=== PATIENT | male | born 1945 | race Two or more races ===

== ENCOUNTER 2024-09-19 13:55 | Outpatient (AMB) | payer MEDICARE, MEDICAID, SELFPAY ==
[2024-09-19 14:50] VITALS: BP 162/77; PULSE 72; RESP 19; TEMP 36.4; O2SAT 96; BMI 32.0
--- NOTE | 2024-09-19 14:50 | ORTHONT_ITS ---
Vital signs 09/19/24 14:50 Height 1.65 m Height Method Stated Weight 87.26 kg Weight Measurement Method Standing Scale BMI 32.0 BP 162/77 H Blood Pressure Source Automatic Cuff Blood Pressure Location Right Upper Arm Position Sitting Respiration 19 Pulse 72 Pulse Source Monitor Temp 97.5 F Temp Source Temporal Artery Scan Pulse Oximetry (%) 96 Oxygen Delivery Method Room Air Med/Allergies Allergies & Medications Allergies No Known Allergies Allergy (Verified 09/19/24 14:53) Medication Reconciliation dapagliflozin propanediol 10 mg tablet (Farxiga) 10 mg PO QAM 09/16/20 [History Confirmed 09/19/24] losartan 50 mg tablet 100 mg PO QDAY 09/16/20 [History Confirmed 09/19/24] metformin 1,000 mg tablet 1,000 mg PO BID 09/16/20 [History Confirmed 09/19/24] omeprazole 40 mg capsule,delayed release 40 mg PO QDAY 09/16/20 [History Confirmed 09/19/24] rivaroxaban 15 mg tablet (Xarelto) 15 mg PO QDAY 09/16/20 [History Confirmed 09/19/24] docusate sodium 250 mg capsule (Col-Rite) 250 mg PO 08/31/22 [History Confirmed 09/19/24] hydralazine 25 mg tablet 25 mg PO QDAY 08/31/22 [History Confirmed 09/19/24] linaclotide 290 mcg capsule (Linzess) 290 mcg PO QDAY 08/31/22 [History Confirme d 09/19/24] Subjective Visit Visit for: follow up visit and x-rays (RESULTS) Immunization / Flu Flu Vaccine in the Last 12 Months: No Flu Vaccine Exclusion Criteria: No Exclusion Criteria History of Present Illness Chief complaint: bilateral knee pain Bilateral knee pain medial is a pleasant 79-year-old male with bilateral knee pain. The left is worse than the right.He has tried anti-inflammatories is not on a very high dose of Xarelto. He is on 15 mg. We also had recent peripheral vascular surgery. The pain is affecting quality life and happiness. He has had multiple injections Pain Pain level (0-10): 6 Pain duration: WITH MOVEMENT Pain location: inside (medial) Pain quality: sharp and aching Pain timing: increases with activity Associated signs & symptoms: numbness and weakness Ambulatory data Ambulatory device: cane Treatments Improvement with previous injections: No Improvement with PT: No Improvement with NSAIDS: no Review of Systems Review of Systems: All systems negative unless otherwise noted in HPI. Exam Exam Patient is in no acute distress and is cooperative with the examination today. Breathing is nonlabored. In no respiratory distress. Bilateral extremities were evaluated and demonstrates sensation intact to light touch. Palpable pedal pulses are present. No significant edema is present. Bilateral hips were examined. The patient has no pain with log roll of the hips. Internal rotation to 30 degrees and external rotation to 30 degrees is painless. Negative FADIR. Bilateral knees demonstrate significant varus alignment. There is significant arthritis. I would guess that the varus is about 15 degrees bilaterally. I reviewed his CTs. X-rays demonstrate significant arthritis with very severe varus deformity. There is a lot of tibial wear in the surgery and may need augments even for a primary total knee replacement. There is significant bone loss and osteophytes present Assessment and Plan Problem List (1) Degenerative arthritis of knee, bilateral: Status: Acute Plan: Patient is a 79-year-old male with bilateral knee pain worse on the left. There is significant varus deformity with [id number] arthritis. He is on Xarelto. He would certainly need a cardiac clearance before surgery. I did feel his pulses in the knee are good. The nature and purpose of the total knee replacement, alternative method(s) of treatment, the material risks involved, and the possibility of complications were fully explained to the patient. The patient does NOT have any of the following contraindications to TKA: - Active infection of the knee joint, OR - Active systemic bacteremia, OR - Active skin infection or open wound at surgical site, OR - Neuropathic arthritis, OR - Severe, rapidly progressive neurological disease, OR - Severe medical condition that makes risks of surgery outweigh the potential benefit The patient was told the most common risks and complications associated with a total knee replacement include, but are not limited to: blood clots in the leg, fatal pulmonary embolism, dislocation of the prosthesis, intraoperative and postoperative fractures of the femur or tibia, infection, failure of the prosthesis or grafting materials, complications from anesthesia, reactions to blood transfusions, postoperative leg length inequality, instability of the knee replacement, nerve damage or injury, vascular injury, delayed wound healing, infection, other injury or even . In addition, there are risks associated with anesthesia given during this operation. Also, the patient was told that after undergoing a total knee replacement there may still be persistent pain or disability. The patient was informed that the success of this operation in part depends upon the mechanical devices which are going to be implanted and that these devices can fail or malfunction, and may need to be repaired or replaced and there are no guarantees as to the longevity of this device or its parts and that it or its parts could fail prematurely. The patient was also notified that during the course of surgery, there may be a need to use bone graft from donors, and that any bone graft used will be carefully screened for communicable diseases, including AIDS, hepatitis, Emeka-Creutzfeldt, or other diseases, but despite the screening procedures, there is a small chance that they could contract one of these diseases. Finally, the patient was asked to follow completely and fully with all advice and recommended treatments, and that recovery and ultimate outcome are affected by their compliance with recommended treatment. We discussed the risks, benefits and treatment alternatives, and the patient is interested in proceeding with surgery. We will try to set this up as expeditiously as possible. We discussed with him that he is at high risk of bleeding she is pleasant for Xarelto. We also discussed that his cardiac clearance and medical clearance will likely limit After surgery performed. We will need to plan for the Xarelto as well Advanced Care Planning Discussion Advance care planning discussed with:: patient Office Procedures GNS Level of Care Nursing/Assessment Patient Status: Established Patient Nursing Assessment/Reassesment: Medication Reconciliation, Update PMH in EMR and Vital Signs Coordination of Care: Complex Care and Chronic Disease 1-5, Education Complex Pt/Fam, Consent,records obtained, informed consent, Results/Orders obtained and Staff clarify orders Special Needs: Language special needs Established Patient Charge Established Patient Point Assignment: 95 Established Patient Point Charge: EP Level 3 (80-115) Past Medical History Past Medical History Have you ever been diagnosed with any of the following: Neurological Problems Seizures: No Cardiology Problems Hypercholesterolemia: Yes Congestive Heart Failure: No Hypertension: Yes Respiratory Problems Chronic Obstructive Pulmonary Disease (COPD): No Smoking: No Smoking Exposure: No Stomache/Intestinal Problems Ulcer: Yes Gastroesophageal Reflux Disease: Yes Genital/Urinary Problems Renal Disease: No Musculoskeletal Problems Arthritis: Yes Head,Eye,Nose,Throat Problems Cataracts: Yes (BILATERAL) Endocrine Problems Diabetes Mellitus Type 1: No Diabetes Mellitus Type 2: Yes Other Problems Falls: No Blood Transfusions: No Blood Transfusion Reaction: No Anesthesia Reactions: No MRSA: No Chicken Pox: Yes Measles: Yes Cancer: No Surgical History Pacemaker: Yes
== END 2024-09-19 15:09 | disposition home or self-care (01) ==
LOC: HODSRG 13:55
PROVIDERS: PCP Physician Assistant; Referring Provider Physician Assistant; Supervising Provider Orthopaedic Surgery Adult Reconstructive Orthopaedic Surgery; Visit Provider Orthopaedic Surgery Adult Reconstructive Orthopaedic Surgery
DX: M17.0 Bilateral primary osteoarthritis of knee (principal); M25.562 Pain in left knee; M25.561 Pain in right knee; M21.162 Varus deformity, not elsewhere classified, left knee; M21.161 Varus deformity, not elsewhere classified, right knee; I10 Essential (primary) hypertension; E78.00 Pure hypercholesterolemia, unspecified
CPT/HCPCS: 99213; G0463

== ENCOUNTER 2025-02-05 14:32 | Outpatient (AMB) | payer MEDICARE, MEDICAID, SELFPAY ==
--- NOTE | 2025-02-05 14:46 | ORTHONT_ITS ---
Vital signs 02/05/25 14:47 Height 1.68 m Height Method Stated Weight 87.685 kg Weight Measurement Method Standing Scale BMI 31.0 BP 150/80 H Blood Pressure Source Automatic Cuff Blood Pressure Location Left Upper Arm Position Sitting Respiration 19 Pulse 71 Pulse Source Monitor Temp 97.3 F Temp Source Temporal Artery Scan Pulse Oximetry (%) 98 Oxygen Delivery Method Room Air Med/Allergies Allergies & Medications Allergies No Known Allergies Allergy (Verified 02/05/25 14:48) Medication Reconciliation dapagliflozin propanediol 10 mg tablet (Farxiga) 10 mg PO QAM 09/16/20 [History Confirmed 02/05/25] losartan 50 mg tablet 100 mg PO QDAY 09/16/20 [History Confirmed 02/05/25] metformin 1,000 mg tablet 1,000 mg PO BID 09/16/20 [History Confirmed 02/05/25] omeprazole 40 mg capsule,delayed release 40 mg PO QDAY 09/16/20 [History Confirmed 02/05/25] rivaroxaban 15 mg tablet (Xarelto) 15 mg PO QDAY 09/16/20 [History Confirmed 02/05/25] Held on 09/25/24. Instructions: Resume on 09/28/24. docusate sodium 250 mg capsule (Col-Rite) 250 mg PO QDAY 08/31/22 [History Confirmed 02/05/25] hydralazine 25 mg tablet 25 mg PO QDAY 08/31/22 [History Confirmed 02/05/25] linaclotide 290 mcg capsule (Linzess) 290 mcg PO QDAY 08/31/22 [History Confirmed 02/05/25] Exam Exam Patient is in no acute distress and is cooperative with the examination today. Breathing is nonlabored. In no respiratory distress. Bilateral extremities were evaluated and demonstrates sensation intact to light touch. Palpable pedal pulses are present. No significant edema is present. Bilateral hips were examined. The patient has no pain with log roll of the hips. Internal rotation to 30 degrees and external rotation to 30 degrees is painless. Negative FADIR. Bilateral knees demonstrate significant varus alignment. There is significant arthritis. I would guess that the varus is about 15 degrees bilaterally. I reviewed his CTs. X-rays demonstrate significant arthritis with very severe varus deformity. There is a lot of tibial wear in the surgery and may need augments even for a primary total knee replacement. There is significant bone loss and osteophytes present Assessment and Plan Problem List (1) Degenerative arthritis of knee, bilateral: Status: Acute Plan: Patient is a 79-year-old male with bilateral knee pain worse on the left. There is significant varus deformity with [id number] arthritis. He is on Xarelto. He has good pulses. The nature and purpose of the total knee replacement, alternative method(s) of treatment, the material risks involved, and the possibility of complications were fully explained to the patient. The patient does NOT have any of the following contraindications to TKA: - Active infection of the knee joint, OR - Active systemic bacteremia, OR - Active skin infection or open wound at surgical site, OR - Neuropathic arthritis, OR - Severe, rapidly progressive neurological disease, OR - Severe medical condition that makes risks of surgery outweigh the potential benefit The patient was told the most common risks and complications associated with a total knee replacement include, but are not limited to: blood clots in the leg, fatal pulmonary embolism, dislocation of the prosthesis, intraoperative and postoperative fractures of the femur or tibia, infection, failure of the prosthesis or grafting materials, complications from anesthesia, reactions to blood transfusions, postoperative leg length inequality, instability of the knee replacement, nerve damage or injury, vascular injury, delayed wound healing, infection, other injury or even . In addition, there are risks associated with anesthesia given during this operation. Also, the patient was told that after undergoing a total knee replacement there may still be persistent pain or disability. The patient was informed that the success of this operation in part depends upon the mechanical devices which are going to be implanted and that these devices can fail or malfunction, and may need to be repaired or replaced and there are no guarantees as to the longevity of this device or its parts and that it or its parts could fail prematurely. The patient was also notified that during the course of surgery, there may be a need to use bone graft from donors, and that any bone graft used will be carefully screened for communicable diseases, including AIDS, hepatitis, Emeka-Creutzfeldt, or other diseases, but despite the screening procedures, there is a small chance that they could contract one of these diseases. Finally, the patient was asked to follow completely and fully with all advice and recommended treatments, and that recovery and ultimate outcome are affected by their compliance with recommended treatment. We discussed the risks, benefits and treatment alternatives, and the patient is interested in proceeding with surgery. We will try to set this up as expeditiously as possible. We discussed with him that he is at high risk of bleeding she is pleasant for Xarelto. We also discussed that his cardiac clearance and medical clearance will likely limit After surgery performed. He will discontinue Xarelto 5 days from surgery. He may need a new CT scan to use the robot Advanced Care Planning Discussion Advance care planning discussed with:: patient Office Procedures GNS Level of Care Nursing/Assessment Patient Status: Established Patient Nursing Assessment/Reassesment: Medication Reconciliation, Update PMH in EMR and Vital Signs Coordination of Care: Complex Care and Chronic Disease 1-5, Education Complex Pt/Fam, Consent,records obtained, informed consent, Results/Orders obtained and Staff clarify orders Special Needs: Language special needs Established Patient Charge Established Patient Point Assignment: 95 Established Patient Point Charge: EP Level 3 (80-115) MA Intake Visit Data Collection New Patient or Established: Established Patient (seen at [facility] within 3 years) Reason for Visit:: PRE OP L TKA 02/23 [employer] Required: Yes PCP or OBGYN visit in last 3 months: Yes Hx Now: No Do You Feel Safe at Home: Yes Authorities Contacted: N/A Questionairres Past Medical History Past Medical History Have you ever been diagnosed with any of the following: Neurological Problems Seizures: No Cardiology Problems Hypercholesterolemia: Yes Congestive Heart Failure: No Hypertension: Yes Respiratory Problems Chronic Obstructive Pulmonary Disease (COPD): No Smoking: No Smoking Exposure: No Stomache/Intestinal Problems Ulcer: Yes Gastroesophageal Reflux Disease: Yes Genital/Urinary Problems Renal Disease: No Musculoskeletal Problems Arthritis: Yes (KNEES) Head,Eye,Nose,Throat Problems Cataracts: Yes (BILATERAL) Endocrine Problems Diabetes Mellitus Type 1: No Diabetes Mellitus Type 2: Yes Other Problems Falls: No (SEVERE PAIN TO KNEES WHEN WALKS) Blood Transfusions: No Blood Transfusion Reaction: No Anesthesia Reactions: Yes (COUGHING SPELL) MRSA: No Chicken Pox: Yes Measles: Yes Cancer: No Surgical History Pacemaker: Yes Subjective Visit Visit for: follow up visit and knee Immunization / Flu Flu Vaccine in the Last 12 Months: No Flu Vaccine Exclusion Criteria: No Exclusion Criteria History of Present Illness Chief complaint: PRE OP left knee pain Slade is a 79-year-old male with left knee surgery was delayed due to cardiac clearance. He reports that he is optimized and now is cleared for surgery. He is post discontinue the Xarelto 5 days before surgery Pain Pain level (0-10): 5 Pain duration: ON AND OFF Pain location: inside (medial), outside (lateral) and anterior Pain quality: dull and aching Pain timing: increases with activity and stairs Associated signs & symptoms: weakness and stiffness Ambulatory data Ambulatory device: cane Treatments Improvement with previous injections: No Improvement with PT: No Improvement with NSAIDS: no Review of Systems Review of Systems: All systems negative unless otherwise noted in HPI.
[2025-02-05 14:47] VITALS: BP 150/80; PULSE 71; RESP 19; TEMP 36.3; O2SAT 98; BMI 31.0
== END 2025-02-05 15:20 | disposition home or self-care (01) ==
PROVIDERS: PCP Family Medicine; Referring Provider Family Medicine; Supervising Provider Orthopaedic Surgery Adult Reconstructive Orthopaedic Surgery; Visit Provider Orthopaedic Surgery Adult Reconstructive Orthopaedic Surgery
DX: M17.0 Bilateral primary osteoarthritis of knee (principal); E78.00 Pure hypercholesterolemia, unspecified; I10 Essential (primary) hypertension; Z95.0 Presence of cardiac pacemaker
CPT/HCPCS: 73700; 99213; G0463

== ENCOUNTER → 2025-02-05 | Outpatient (CLI) | payer MEDICARE, MEDICAID, SELFPAY ==
--- NOTE | 2025-02-05 15:38 | XR_ITS ---
Examination: CT left lower extremity, without contrast. 2-D sagittal reconstructions. 2-D coronal reconstructions. 3-D reconstructions. Date and time of exam:February 05, 2025 1714 hrs. Indications: Left knee pain 5 years, diagnosis primary osteoarthritis left knee CTDI: vol (mGy):9.75 DLP: (mGycm):751 Technique: Multiple 1.25 mm axial sections of the left lower extremity without intravenous contrast have been obtained. 2-D sagittal and coronal reconstructions have been obtained. 3-D reconstructions have been obtained. Low dose protocols were performed. One or more of the following dose reduction techniques were used; automated exposure control, adjustment of the mA and/or KV according to patient size, use of iterative reconstruction technique. Findings: Prominent osteopenia Moderate narrowing left hip joint no left hip fracture Left knee severe tricompartment osteoarthritis No fracture. No patellar dislocation Impression: Left knee severe tricompartment osteoarthritis
== END | disposition home or self-care (01) ==
PROVIDERS: PCP Orthopaedic Surgery Adult Reconstructive Orthopaedic Surgery; Referring Provider Orthopaedic Surgery Adult Reconstructive Orthopaedic Surgery; Visit Provider Orthopaedic Surgery Adult Reconstructive Orthopaedic Surgery
DX: M17.12 Unilateral primary osteoarthritis, left knee (principal)
CPT/HCPCS: 73700

== ENCOUNTER 2025-02-23 05:35 | Day surgery (SDC) | payer MEDICARE, MEDICAID, SELFPAY ==
--- NOTE | 2025-02-17 07:25 | EKG_ITS ---
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
[2025-02-17 09:26] VITALS: BMI 32.8
[2025-02-17 11:12] LABS: Basophils # (Auto) 0.1 Thou/mm3 (0.0-0.2); Basophils % (Auto) 1 % (0-2.5); Eosinophils # (Auto) 0.1 Thou/mm3 (0.0-0.5); Eosinophils % (Auto) 1 % (0-10); Hematocrit 40.7 % (41.0-53.0); Hemoglobin 13.8 g/dL (13.5-16.0); Immature Granulocytes % (Auto) 1 % (0-0); Immature Granulocytes Auto 0.03 Thou/mm3 (0.00-0.00); Lymphocytes # (Auto) 1.2 Thou/mm3 (1.0-4.8); Lymphocytes % (Auto) 25 % (10-50); Mean Corpuscular HGB Conc 33.9 g/dl (31.0-37.0); Mean Corpuscular Hemoglobin 29.9 pg (25.0-35.0); Mean Corpuscular Volume 88 fL (80-100); Monocytes # (Auto) 0.5 Thou/mm3 (0.0-0.8); Monocytes % (Auto) 9 % (0-12); Neutrophils # (Auto) 3.2 Thou/mm3 (1.8-7.7); Neutrophils % (Auto) 64 % (37-80); Nucleated Red Blood Cell % 0 /100 WBC (0); Platelet Count 213 Thou/mm3 (140-440); RDW Standard Deviation 47.1 fL (35.1-43.9); Red Blood Count 4.62 Miln/mm3 (4.50-5.90)
[2025-02-17 11:18] LABS: INR 1.2 (0.9-1.3); Partial Thromboplastin Time 32.4 Seconds (22.0-36.0); Prothrombin Time 12.8 Seconds (9.0-12.2)
[2025-02-17 11:20] LABS: Alanine Aminotransferase 20 U/L (10-49); Albumin, Serum 4.6 gm/dL (3.4-4.8); Albumin/Globulin Ratio 1.6 (1.2-2.2); Alkaline Phosphatase 59 U/L (46-116); Anion Gap 12 (7-16); Aspartate Amino Transferase 22 U/L (0-34); BUN/Creatinine Ratio 20 Ratio (12-20); Bilirubin,Total 0.7 mg/dL (0.3-1.2); Blood Urea Nitrogen 20 mg/dL (9-23); Calcium 10.1 mg/dL (8.3-10.6); Calcium (Corrected) 10.1 mg/dL (8.5-10.1); Chloride 104 mMol/L (98-107); Estimated Creatinine Clearance 59.5 mL/min (>60); Globulin 2.9 gm/dL (2.3-3.5); Glucose 143 mg/dL (74-106); Osmolality,Calculated 285 (275-295); Potassium 4.1 mMol/L (3.4-5.1); Sodium 141 mMol/L (136-145); Total Protein 7.5 gm/dL (5.7-8.2); eGFR > 60 See Note
[2025-02-23] VITALS (15 sets, daily range): BP systolic 116–146; BP diastolic 74–98; PULSE 71–83; RESP 12–18; TEMP 36.3–36.5; O2SAT 95–98; BMI 32.4
[2025-02-23] MEDS: MELOXICAM 7.5 MG TABLET PO (06:35)
[2025-02-23] MEDS: ACETAMINOPHEN 325 MG TABLET 650 MG PO (06:35)
[2025-02-23] MEDS: PREGABALIN 75 MG CAPSULE PO (06:36)
--- NOTE | 2025-02-23 07:23 | SUR.PREOP ---
Patient expressed gratitude for prayer before their procedure.
--- NOTE | 2025-02-23 09:49 | ESOP_ITS ---
Date of Procedure 02/23/25 Pre Op Diagnosis left knee osteoarthritis Post Op Diagnosis left knee osteoarthritis Procedure left total knee replacement Findings full thickness cartilage loss and osteophytes Procedure Description Indication: The patient is a 79 year old who has a long history of left knee pain. X-rays show degenerative arthritis involving the knee. Over the past several years the patient has had increasing pain, progressive limitation in function. He has failed conservative measures including activity modification, physical therapy, injections, anti-inflammatories, and assistive devices. After a lengthy discussion of the risks and benefits, the patient presents now for total knee replacement. The nature and purpose of the total knee replacement, alternative method(s) of treatment, the material risks involved, and the possibility of complications were fully explained to the patient. The patient was told the most common risks and complications associated with a total knee replacement include, but are not limited to blood clots in the leg, fatal pulmonary embolism, dislocation of the prosthesis, intraoperative and postoperative fractures of the femur or tibia, infection, failure of the prosthesis or grafting materials, complications from anesthesia, reactions to blood transfusions, postoperative leg length inequality, instability of the knee replacement, nerve damage or injury, vascular injury, delayed wound healing, infections, other injury or even . In addition, there are risks associated with anesthesia given during this operation, temporary or permanent numbness on the skin lateral to the incision can be a complication unique to total knee surgery, and kneeling can be painful after knee replacement surgery. Also, the patient was told that after undergoing a total knee replacement there may still be pain or disability. We discussed with the patient that we will be using a robot-assisted technology. We discussed that there is a possibility of converting to manual instrumentation. The patient was informed that the success of this operation in part depends upon the mechanical devices which are going to be implanted and that these devices can fail or malfunction, and may need to be repaired or replaced and there are no guarantees as to the longevity of this device or its part and that it or its parts could fail prematurely. Finally, the patient was asked to follow completely and fully with all advice and recommended treatments, and that recovery and ultimate outcome are affected by their compliance with recommended treatment. Surgical technique: Patient was marked and consented in the pre-operative area. The patient was brought to the operating room and placed on the operating table in a supine position. Prior to positioning, a timeout procedure was performed between the surgeon, the anesthesiologist, and the nursing staff where the patient and the operative side were identified and confirmed. After adequate general anesthetic was obtained, the left lower extremity was prepped and draped in the usual sterile fashion. A weight based dose of Cefazolin were administered within 1 hour prior to incision. The robot was preregistered and calirated before the incision. The extremity was exsanguinated with an esmarch badge and tourniquet inflated to 250mmHg. A midline incision was made. A median parapatellar arthrotomy was made. The patella was subluxed laterally. A medial release was performed to expose the medial tibia. His femoral and tibial pins were placed through an intra incisional manner for both cases. Every effort was made to ensure that the distalmost aspect of the pin was hung in the second cortex. The arrays were then tightened several times to ensure that it was fixed for the remainder of the case. Both femoral and tibial checkpoints were then placed. We then went through the registration process of the bone. We then assessed the knee deformity and attempted to correct it. We also used the robot to aid in judging laxity in both extension and flexion. Final based on laxity and alignment we changed the preoperative assessment to obtain proper proper implant positioning and to correct deformity. Attention was then placed to the tibia. We made a tibial cut using the robot ensuring that both the MCL and the patella tendon were protected with retractors. We then went to the femur and made the posterior cut followed by the anterior cut and the anterior chamfer. The bone was then removed and we made a distal femur cut and a posterior chamfer cut. We verified all cuts. We cut for a PS given the 22 degreee preoperative deformity. A trial reduction was performed with a size 5 femoral component and a size 4 keeled tibial component. The patella tracked centrally, and no lateral retinacular release was necessary. The trial implants were removed. The arrays, pins, and checkpoints were all removed. We performed a verification that all pins were removed. The cut bone surfaces were lavaged. A size 5 left femoral component, a size 4 keeled tibial component were impacted into position using 2 bags of palacos. A trial insert was placed. The knee was left in extension until the cement hardened. The knee was felt to be well balanced in the sagittal and coronal plane. The final 4x10mm posterior-substituting articular insert was impacted into the tibial tray. The knee was brought out to full extension, flexed up to 120 degrees. It was stable to varus and valgus stress and appropriately balanced in flexion and extension. The wounds were copiously irrigated following deflation of tourniquet. The medial retinaculum was reapproximated with #1 vicryl and quill. The subcutaneous tissues were closed with 0 and 2-0 interrupted Vicryl. The skin was closed with 3-0 Monofilament V loc suture. A sterile dressing was applied. The patient was transferred to a bed and brought to recovery in stable condition. The patient tolerated the procedure well. There were no intraoperative complications. Sponge and needle counts were correct times 2. As the attending surgeon, I attest I was present and performed the entire operation. Grafts/Implants Size 5 PS Femur Size 4 Tibia 10mm poly CS 2 bags of palacos Anesthesia spinal Drains none Implants fred Pathology / specimen None Pathology comment: none Estimated Blood Loss 150 Condition Stable Disposition same day Surgeon Gaurav Rutherford MD Surgical Staff Operation Date: 02/23/25 07:30 Case Staff PROVIDER NETWORK ANALYST: Mario Bautista RNchoir member: Roxi Hines
--- NOTE | 2025-02-23 10:01 | XR_ITS ---
Examination: Left knee 2 views Technique one AP lateral left knee 2 views Exam date and time: February 23, 2025 1111 hours INDICATIONS: Postop knee replacement FINDINGS: Left knee arthroplasty. Satisfactory alignment Severe osteopenia. No fracture IMPRESSION: Total left knee arthroplasty with satisfactory alignment
--- NOTE | 2025-02-23 10:36 | SUR.PHASEI ---
pt received from OR in recovery bay 1. pt obtunded, breathing unlabored on oxymask 8l, oral airway in place. v/s stable. pt dressing to left lower extremity cdi, knee immobilizer in place. Report recieved from Stacey OGDEN and Mario REYNA.
--- NOTE | 2025-02-23 12:09 | SUR.PHASEII ---
pt able to tolerate oral fluids without difficulty swallowing or nausea/vomiting.
--- NOTE | 2025-02-23 12:45 | SUR.PHASEII ---
pt lying in bed with eyes closed, breathing unlabored, dressing to left lower extremity clean, dry, and intact, report from Azam OGDEN
--- NOTE | 2025-02-23 13:21 | SUR.PHASEII ---
Report to Azam OGDEN
--- NOTE | 2025-02-23 14:45 | SUR.PHASEII ---
pt awake and alert, breathing unlabored on room air. v/s stable. pt dressing to left lower extremity cdi. knee immobilizer in place. pt cleared by physical therapist Al. pt able to ambulate using walker. d/c instructions given with and son in room using supervisor speech Prakash Bryant9, all questions answered. pt d/c via wheelchair with all belongings.
== END 2025-02-23 14:45 | disposition home or self-care (01) ==
PROVIDERS: Anesthesiology; PCP Physician Assistant; Referring Provider Orthopaedic Surgery Adult Reconstructive Orthopaedic Surgery; Visit Provider Orthopaedic Surgery Adult Reconstructive Orthopaedic Surgery
PROC: (CPT 27447; principal; 2025-02-23 07:30)
DX: M17.12 Unilateral primary osteoarthritis, left knee (principal); M25.762 Osteophyte, left knee; I10 Essential (primary) hypertension; E78.00 Pure hypercholesterolemia, unspecified; E11.9 Type 2 diabetes mellitus without complications; Z79.84 Long term (current) use of oral hypoglycemic drugs; Z79.899 Other long term (current) drug therapy; Z79.01 Long term (current) use of anticoagulants
CPT/HCPCS: 27447; 20985; 36415; 73560; 80053; 85025; 85610; 85730; 93005; 97162; A4217; C1713; C1776; J0690; J2250; J2405; J2704; J3010; J3490; J7030; J7999; L1832; A4648; A4649; A9270

== ENCOUNTER 2025-02-28 12:12 | Emergency (ER) | payer MEDICARE, MEDICAID, SELFPAY ==
[2025-02-28 13:36] VITALS: BP 144/76; PULSE 87; RESP 18; TEMP 37.2; O2SAT 97; BMI 31.2
--- NOTE | 2025-02-28 13:58 | XR_ITS ---
Examination: Duplex scan of the lower extremity, unilateral left complete Date and time of exam: February 28, 2025 1623 hours INDICATIONS: Status post left hip replacement February 24, 2025 with leg pain on the left swelling today Technique: Duplex scan of the extremity veins using B-mode/grayscale imaging and Doppler spectral analysis and color flow Attention is directed to internal echogenicity, compression and augmentation involving these veins, color flow assessment, spectral analysis Findings: Major deep venous structures in the extremity demonstrate normal course and caliber. There is no evidence of deep vein thrombosis. Normal color flow and spectral analysis Impression: Negative for DVT..
--- NOTE | 2025-02-28 14:02 | PD.EDRME ---
Rapid Medical Screening Exam RME Arrival date/time: 02/28/25 12:12 Chief Complaint: Extremity Problem,Nontraumatic Time Seen by Provider: 02/28/25 13:38 Vital signs: Vital Signs Temperature 99 F 02/28/25 13:36 Pulse Rate 87 02/28/25 13:36 Respiratory Rate 18 02/28/25 13:36 Blood Pressure 144/76 H 02/28/25 13:36 Pulse Oximetry (%) 97 02/28/25 13:36 Oxygen Delivery Method Room Air 02/28/25 13:36 E Narrative: 79-year-old male 5 days postop here for sudden pain. On oxycodone and states this morning after his rehab at home the swelling behind his leg and in the inner groin with worse and painful he could no longer tolerate it and OxyContin was not working. Family is here worried about a blood clot. No difficulty breathing
[2025-02-28] MEDS: KETOROLAC INJ 60 MG/2 ML VIAL 30 MG IM (14:11)
--- NOTE | 2025-02-28 18:02 | PC.NURSE ---
Patient from [facility] and taken to room 4 with c/o left knee pain and swelling, s/p left knee surgery on sunday, patient denies pain at this time stating he was given pain medication in er earlier, chart up to be seen by er provider. Call light within reach.
[2025-02-28 18:08] VITALS: BP 130/66; PULSE 66; RESP 18; TEMP 36.8; O2SAT 97
--- NOTE | 2025-02-28 18:33 | XR_ITS ---
Examination: CT left lower extremity, without contrast. 2-D sagittal reconstructions. 2-D coronal reconstructions. 3-D reconstructions. Date and time of exam: March 01, 2025 0004 hours Comparison February 05, 2025 MEDICATIONS: Left leg surgery 5 days ago, pain and swelling CTDI: vol (mGy):6.87 DLP: (mGycm):476 Technique: Multiple 1.25 mm axial sections of the 60 cc Isovue 370 have been obtained. 2-D sagittal and coronal reconstructions have been obtained. 3-D reconstructions have been obtained. Low dose protocols were performed. One or more of the following dose reduction techniques were used; automated exposure control, adjustment of the mA and/or KV according to patient size, use of iterative reconstruction technique. Findings: Total left knee arthroplasty. Adequate alignment No fracture or No cortical bone destruction Cellulitis pattern with subcutaneous edema Large complex knee effusion No rafaela cortical bone destruction IMPRESSION: Total left knee arthroplasty with satisfactory alignment No fracture No rafaela cortical bone destruction Large complex knee effusion
--- NOTE | 2025-02-28 18:34 | XR_ITS ---
Examination: AP chest single view TECHNIQUE: AP portable semiupright chest single view Exam date and time: February 28, 2025 1919 hours Comparison January 31, 2019 INDICATIONS: Shortness of breath chest pain beginning 2 days ago FINDINGS: Mild prominence left ventricle Cardiac leads satisfactory position No pneumonia or pulmonary edema IMPRESSION: No pneumonia or pulmonary edema
[2025-02-28] MEDS: SODIUM CHLORIDE 0.9% 1000 ML 1,000 ML 999 ML IV (18:49)
--- NOTE | 2025-02-28 18:51 | PC.NURSE ---
Patient refused morphine. Patient states he has no pain at this time. Informed patient to let me know if pain returns, will give medication per MD order.
[2025-02-28 18:52] LABS: Lactate (Lactic Acid) 3.2 mMol/L (0.4-2.0)
[2025-02-28 18:53] LABS: Basophils % (Auto) 1 % (0-2.5); Eosinophils # (Auto) 0.1 Thou/mm3 (0.0-0.5); Eosinophils % (Auto) 2 % (0-10); Hematocrit 30.7 % (41.0-53.0); Hemoglobin 10.6 g/dL (13.5-16.0); Immature Granulocytes % (Auto) 1 % (0-0); Immature Granulocytes Auto 0.02 Thou/mm3 (0.00-0.00); Lymphocytes # (Auto) 0.6 Thou/mm3 (1.0-4.8); Lymphocytes % (Auto) 16 % (10-50); Mean Corpuscular HGB Conc 34.5 g/dl (31.0-37.0); Mean Corpuscular Hemoglobin 30.2 pg (25.0-35.0); Mean Corpuscular Volume 88 fL (80-100); Monocytes # (Auto) 0.6 Thou/mm3 (0.0-0.8); Monocytes % (Auto) 15 % (0-12); Neutrophils # (Auto) 2.5 Thou/mm3 (1.8-7.7); Neutrophils % (Auto) 65 % (37-80); Nucleated Red Blood Cell % 0 /100 WBC (0); Platelet Count 240 Thou/mm3 (140-440); RDW Standard Deviation 45.9 fL (35.1-43.9); Red Blood Count 3.51 Miln/mm3 (4.50-5.90); White Blood Count 3.8 Thou/mm3 (3.8-10.6)
[2025-02-28 19:00] LABS: Sed Rate (ESR) 67 mm/hr (0-20)
[2025-02-28 19:19] LABS: Alanine Aminotransferase 17 U/L (10-49); Albumin/Globulin Ratio 1.4 (1.2-2.2); Alkaline Phosphatase 64 U/L (46-116); Anion Gap 12 (7-16); Aspartate Amino Transferase 20 U/L (0-34); BUN/Creatinine Ratio 16 Ratio (12-20); Bilirubin,Total 0.9 mg/dL (0.3-1.2); Blood Urea Nitrogen 18 mg/dL (9-23); Calcium 8.8 mg/dL (8.3-10.6); Calcium (Corrected) 8.8 mg/dL (8.5-10.1); Carbon Dioxide 22.1 mMol/L (20.0-31.0); Chloride 98 mMol/L (98-107); Creatinine (Component) 1.1 mg/dL (0.6-1.3); Estimated Creatinine Clearance 54.7 mL/min (>60); Globulin 2.8 gm/dL (2.3-3.5); Glucose 217 mg/dL (74-106); Magnesium 2.1 mg/dL (1.6-2.6); Osmolality,Calculated 273 (275-295); Sodium 132 mMol/L (136-145); Total Protein 6.8 gm/dL (5.7-8.2); eGFR > 60 See Note
[2025-02-28 19:21] LABS: B-Type Natriuretic Peptide 72 pg/mL (0-100)
--- NOTE | 2025-02-28 19:22 | PD.EDEXREM ---
ED Extremity Problem RME/HPI General Chief complaint: Extremity Problem,Nontraumatic Stated complaint: LEFT LEG / KNEE SWELLING POST SURGERY Time Seen by Provider: 02/28/25 13:38 Arrival date/time: 02/28/25 12:12 RME / HPI RME / HPI Narrative: 79-year-old male 5 days postop here for sudden pain. On oxycodone and states this morning after his rehab at home the swelling behind his leg and in the inner groin with worse and painful he could no longer tolerate it and OxyContin was not working. Family is here worried about a blood clot. No difficulty breathing This section includes all my notes and documentations, including HPI, PE, and ED course. Eric Muñoz MD HPI: 75-year-old male here to be evaluated with a couple day history of severely worsening pain and swelling and redness of the left knee. Dr. Rutherford performed left knee replacement about a week ago, on 02/23/2025. No fever or chills. No body aches or malaise. No other complaints. ROS: All negative except as documented in HPI. Physical Exam: General: Alert and oriented. Eyes: Conjunctivae and lids clear. ENT: No nasal congestion. Neck: Supple. Lungs: No respiratory distress. Skin: Warm and dry. Neuro: Alert and oriented X 3. Left knee: Severely erythematous with edema and calor and tenderness. I reviewed all diagnostic test results. My interpretation of the chest x-ray is no acute findings. My review of the left leg US report is no DVT. My review of the left leg CT report is: 1. No acute fractures or dislocations. 2. Subcutaneous fat edema, consider cellulitis in the differential diagnosis. 3. Complex knee joint effusion, limited evaluation due to beam hardening artifacts. Consider further evaluation to assess for septic arthritis. 4. No CT evidence of osteomyelitis. Blood tests and urine tests remarkable for ESR 67, lactic acid 3.2, CRP 13.3,. At this point, diagnoses include left knee surgical infection. Treatment here included IV fluid and morphine and cefepime and vancomycin. Waiting for Dr. Rutherford to call back. At 6 AM on 03/01/25, the care of the patient was transferred to Dr. Gayle. Eric Muñoz MD Related Data Home Medications ?Medication ?Instructions ?Recorded ?Confirmed omeprazole 40 mg capsule,delayed 40 mg PO QDAY 09/16/20 02/28/25 release rivaroxaban 15 mg tablet (Xarelto) 15 mg PO QDAY 09/16/20 02/28/25 Held on 02/23/25. Instructions: Resume on 03/09/25. hold for 14 days then resume after 10mg dose is stopped linaclotide 290 mcg capsule 290 mcg PO QDAY 08/31/22 02/28/25 (Linzess) dapagliflozin propaned 5 1 tab PO .qd 02/17/25 02/28/25 mg-metformin ER 1,000 mg tablet, ext rel 24hr (Xigduo XR) insulin degludec 100 unit/mL (3 40 unit subcut HS 02/17/25 02/28/25 mL) subcutaneous pen losartan 100 mg tablet 100 mg PO DAILY 02/17/25 02/28/25 Previous Rx's ?Medication ?Instructions ?Recorded acetaminophen 500 mg tablet 1,000 mg (2 x 500 mg) PO Q6H PRN 02/23/25 (Acetaminophen Extra Strength) pain #90 tabs doxycycline hyclate 100 mg tablet 100 mg PO BID #14 tabs 02/23/25 gabapentin 300 mg capsule 300 mg PO .qhs #30 caps 02/23/25 oxycodone 5 mg tablet 5 mg PO Q6H PRN pain #28 tabs 02/23/25 rivaroxaban 10 mg tablet (Xarelto) 10 mg PO QDAY #14 tabs 02/23/25 sennosides 8.6 mg-docusate sodium 1 tab-cap PO QDAY #30 tabs 02/23/25 50 mg tablet (Senna-S) Allergies Allergy/AdvReac Type Severity Reaction Status Date / Time No Known Allergies Allergy Verified 02/28/25 12:15 Course Quality Measures none Orders Category Date Time Status CT Screening NOW Care 02/28/25 18:33 Active Saline [Insert IV] NOW Care 02/28/25 18:32 Completed Straight [In and Out Catheter] X1 Care 02/28/25 18:[address] lower leg LT w con Stat Exams 02/28/25 18:33 Taken US venous doppler LE LT Stat Exams 02/28/25 13:58 Completed XR chest 1V portable Stat Exams 02/28/25 18:34 Completed BNP [B-Type Natriuretic Peptide] Stat Lab 02/28/25 18:45 Completed Blood Culture (Lab) Stat Lab 02/28/25 19:03 Received CBC Stat Lab 02/28/25 18:45 Completed CMP [Comprehensive Metabolic Panel] Stat Lab 02/28/25 18:45 Completed CRP [C-Reactive Protein] Stat Lab 02/28/25 18:45 Completed ESR [Sed Rate (ESR)] Stat Lab 02/28/25 18:45 Completed Lactate (Lactic Acid) Stat Lab 02/28/25 18:45 Completed Lactic Acid, 3 HR Stat Lab 02/28/25 21:55 Completed Magnesium Stat Lab 02/28/25 18:45 Completed PT [Prothrombin Time with INR] Stat Lab 02/28/25 18:45 Completed PTT [Partial Thromboplastin Time] Stat Lab 02/28/25 18:45 Completed Procalcitonin Stat Lab 02/28/25 18:45 Completed TSH [Thyroid Stimulating Hormone] Stat Lab 02/28/25 18:45 Completed UA, C/S IF [Urinalysis, C/S if Indicated] Stat Lab 02/28/25 19:26 Completed Cefepime Inj [Maxipime Inj] 2 gm Med 03/01/25 01:36 Discontinued SODIUM CHLORIDE 0.9% (Popper) [Ns 0.9% (P)] 50 ml IV X1 Doxycycline [Vibramycin] Med 03/01/25 01:26 Discontinued 100 mg PO X1 ONE Ketorolac Inj [Toradol Inj] Med 02/28/25 13:58 Discontinued 30 mg IM X1 ONE Morphine Inj Med 03/01/25 01:16 Discontinued 4 mg IVP X1 ONE Morphine Inj Med 02/28/25 18:32 Discontinued 5 mg IVP X1 ONE Ondansetron Inj [Zofran Inj] Med 03/01/25 01:16 Discontinued 4 mg IV X1 ONE Sodium Chloride 0.9% 1000 ml [Ns] 1,000 ml Med 02/28/25 18:32 Discontinued IV 999 mls/hr Sodium Chloride 0.9% 1000 ml [Ns] 1,000 ml Med 03/01/25 01:22 Discontinued IV 999 mls/hr Sodium Chloride 0.9% 1000 ml [Ns] 1,000 ml Med 03/01/25 01:36 Discontinued IV 999 mls/hr Vancomycin Inj 2,000 mg Med 03/01/25 01:36 Active Sodium Chloride 0.9% 500 ml [Ns] 500 ml IV X1 Vital Signs Vital signs: Vital Signs Temperature 99 F 02/28/25 13:36 Pulse Rate 87 02/28/25 13:36 Respiratory Rate 18 02/28/25 13:36 Blood Pressure 144/76 H 02/28/25 13:36 Pulse Oximetry (%) 97 02/28/25 13:36 Oxygen Delivery Method Room Air 02/28/25 13:36 Extremity Problem Patient data External records reviewed:: [facility] previous records Clinical information provided by:: patient and family Social determinants that could affect healthcare access:: none Patient has the following chronic illnesses:: Hypertension and arthritis and recent left knee replacement How is presenting disease/condition affected by chronic disease/condition?: exacerbated by Evaluation data The following diagnostics were reviewed and interpreted by me:: lab results and radiology exam(s) Lab and/or radiology exams considered but not ordered:: None Interpretation Summary: Left knee surgical infection Medications / Prescriptions Medications or Prescriptions considered but not ordered:: None Medication administrations:: Medication Administration History Vancomycin HCl 2,000 mg/ (Sodium Chloride) 500 mls @ 150 mls/hr IV X1 ONE Stop: 03/01/25 04:55 Last Admin: 03/01/25 03:04 Dose: 150 mls/hr Documented By: CVL Discontinued Medications Doxycycline Hyclate (Doxycycline 100 Mg Tablet) 100 mg PO X1 ONE Stop: 03/01/25 01:27 Last Admin: 03/01/25 01:44 Dose: 100 mg Documented By: AM Sodium Chloride (Ns) 1,000 mls @ 999 mls/hr IV .Q1H1M ONE Stop: 02/28/25 19:32 Last Infusion: 02/28/25 22:15 Dose: Infused Documented By: Admin: 02/28/25 18:49 Dose: 999 mls/hr Documented By: LÓPEZ Sodium Chloride (Ns) 1,000 mls @ 999 mls/hr IV .Q1H1M ONE Stop: 03/01/25 02:22 Last Infusion: 03/01/25 02:23 Dose: Infused Documented By: Admin: 03/01/25 01:45 Dose: 999 mls/hr Documented By: AM Cefepime HCl 2 gm/ Sodium (Chloride) 50 mls @ 100 mls/hr IV X1 ONE Stop: 03/01/25 02:05 Last Infusion: 03/01/25 03:02 Dose: Infused Documented By: Admin: 03/01/25 02:30 Dose: 100 mls/hr Documented By: CVL Sodium Chloride (Ns) 1,000 mls @ 999 mls/hr IV .Q1H1M ONE Stop: 03/01/25 02:36 Last Infusion: 03/01/25 03:34 Dose: Infused Documented By: Admin: 03/01/25 02:33 Dose: 999 mls/hr Documented By: CVL Ketorolac Tromethamine (Ketorolac Inj 60 Mg/2 Ml Vial) 30 mg IM X1 ONE Stop: 02/28/25 13:59 Last Admin: 02/28/25 14:11 Dose: 30 mg Documented By: CHAVEZ Morphine Sulfate (Morphine Sulf Inj 10 Mg/Ml Vial) 5 mg IVP X1 ONE Stop: 02/28/25 18:33 Last Admin: 02/28/25 20:56 Dose: Not Given Documented By: MC Non-Admin Reason: Patient Refused Morphine Sulfate (Morphine Sulf Inj 10 Mg/Ml Vial) 4 mg IVP X1 ONE Stop: 03/01/25 01:17 Last Admin: 03/01/25 01:43 Dose: 4 mg Documented By: AM Ondansetron HCl (Ondansetron Inj 2 Mg/Ml Inj 2 Ml) 4 mg IV X1 ONE; Protocol Stop: 03/01/25 01:17 Last Admin: 03/01/25 01:44 Dose: 4 mg Documented By: JU[facility]ARLOS [facility], patient received [facility] fluid and Zofran and morphine and cefepime and vancomycin. Consultations Consultation(s) initiated? (list below): No Diagnosis Extremity Problem Differential Diagnosis: cellulitis, superficial thrombophlebitis, deep vein thrombosis of lower extremity and other (Surgical infection, abscess, sepsis, osteomyelitis) Most likely diagnosis given after review of the tests above:: Left knee surgical infection Admission Indicated Admission indicated?: not indicated Explain why admission is indicated or not indicated:: Waiting for Dr. Rutherford to call back. Admission Request Was there a request for admission?: No Disposition Plan Disposition Plan: other (specify) (Care of the patient was transferred to Dr. Gayle. ) Discharge Plan Prescriptions/Referrals Prescriptions/Med Rec: No Action omeprazole 40 mg Capsule,Delayed Release(Dr/Ec) 40 mg PO QDAY Xarelto 15 mg Tablet 15 mg PO QDAY Linzess 290 mcg Capsule 290 mcg PO QDAY losartan 100 mg tablet 100 mg PO DAILY dapaglifloz propaned-metformin [Xigduo XR] 5-1,000 mg tablet, IR - ER, biphasic 24hr 1 tab PO .qd insulin degludec 100 unit/mL (3 mL) insulin pen 40 unit SUBCUT HS acetaminophen [Acetaminophen Extra Strength] 500 mg tablet 1,000 mg PO Q6H MDD 1000mg PRN (Reason: pain) Qty: 90 0RF gabapentin 300 mg capsule 300 mg PO .qhs Qty: 30 0RF doxycycline hyclate 100 mg tablet 100 mg PO BID Qty: 14 0RF oxycodone 5 mg tablet 5 mg PO Q6H MDD 20 PRN (Reason: pain) Qty: 28 0RF Rx Instructions: z96.65 sennosides-docusate sodium [Senna-S] 8.6-50 mg tablet 1 tab-cap PO QDAY Qty: 30 0RF Xarelto 10 mg tablet 10 mg PO QDAY Qty: 14 0RF Rx Instructions: Take for 14 days then resume original home dose of 15mg q day Referrals: No Primary/Family,Physician [Primary Care Provider] - In 1 week Problem List Clinical Impression: Left knee pain Patient/Caregiver Discharge Instructions Print Language: Yakut
[2025-02-28 19:31] LABS: Collection Type, Urine Clean Catch; RBC,Urine 0 /hpf (0-3); WBC,Urine 0 /hpf (0-5)
[2025-02-28 19:52] LABS: C-Reactive Protein 13.3 mg/dL (0.0-0.9)
[2025-02-28 19:59] LABS: Bilirubin,Urine Negative (Negative); Blood,Urine Negative (Negative); Clarity,Urine Clear (Clear/Hazy); Color,Urine Lt-Yellow (Lt Yel-Yel); Culture Indicated,Urine Not Indicated; Glucose, Urine 4+ (Negative); Ketones,Urine Negative (Negative); Leukocyte Esterase,Urine Negative (Negative); Nitrite,Urine Negative (Negative); Protein,Urine Negative (Neg - Trace); Specific Gravity,Urine 1.028 (1.001-1.035); Squamous Epithelial Cell,Urine < 1 /hpf (0-5); Urobilinogen,Urine Negative mg/dL (0.0-1.0)
[2025-02-28 20:36] VITALS: BP 138/80; PULSE 58; RESP 17; TEMP 36.8; O2SAT 96
[2025-02-28 21:22] LABS: INR 1.1 (0.9-1.3); Partial Thromboplastin Time 31.3 Seconds (22.0-36.0); Prothrombin Time 11.4 Seconds (9.0-12.2)
[2025-02-28 21:47] LABS: Reflex Lactate? Y
[2025-02-28 22:01] LABS: Lactic Acid, 3 HR 2.4 mMol/L (0.4-2.0)
[2025-02-28 23:03] VITALS: BP 141/69; PULSE 70; RESP 18; TEMP 37.1; O2SAT 99
--- NOTE | 2025-03-01 01:05 | PRELIM_ITS ---
CT scan of the left lower extremity (knee, tibia and fibula, ankle, and foot) with intravenous contrast (axial sections with sagittal and coronal reformats) March 01, 2025 at 0004 hours Clinical History: Edema. Erythema calor, tenderness. Comparison: No prior study is available for comparison. Findings: Suboptimal timing of the contrast bolus for enhancement of the lower extremity vasculature. Image quality is limited by beam hardening artifact. Status post knee joint replacement, no evidence of hardware failure or loosening. Complex knee joint effusion, limited evaluation due to beam hardening artifact. Subcutaneous fat edema. No acute fractures or dislocation. No collections. Vascular calcifications. No CT evidence of osteomyelitis. Impression: 1. No acute fractures or dislocations. 2. Subcutaneous fat edema, consider cellulitis in the differential diagnosis. 3. Complex knee joint effusion, limited evaluation due to beam hardening artifacts. Consider further evaluation to assess for septic arthritis. 4. No CT evidence of osteomyelitis. If osteomyelitis is clinically suspected consider correlation with dedicated nuclear medicine radiolabeled white blood cell study. Suboptimal timing of the contrast bolus for enhancement of the lower extremity vasculature; this is possibly due to decreased cardiac function. Consider correlation with Doppler ultrasound of the arteries and veins. Report Electronically Signed By: Kadeem Polanco 03/01/2025 1:04:53 AM [EST]
[2025-03-01 01:19] VITALS: BP 133/69; PULSE 60; RESP 16; TEMP 37.2; O2SAT 97
[2025-03-01] MEDS: MORPHINE SULF INJ 10 MG/ML VIAL 4 MG IVP (01:43)
[2025-03-01] MEDS: ONDANSETRON INJ 2 MG/ML INJ 2 ML 4 MG IV (01:44)
[2025-03-01] MEDS: DOXYCYCLINE 100 MG TABLET PO (01:44)
[2025-03-01] MEDS: SODIUM CHLORIDE 0.9% 1000 ML 1,000 ML 999 ML IV ×2 (01:45→02:33)
[2025-03-01] MEDS: CEFEPIME INJ 2 GM in SODIUM CHLORIDE 0.9% (Popper) 50 ML IV (02:30)
[2025-03-01] MEDS: Vancomycin Inj 2,000 MG in SODIUM CHLORIDE 0.9% 500 ML 500 ML 150 MG IV (03:04)
[2025-03-01 05:00] VITALS: BP 139/68; PULSE 62; RESP 17; TEMP 36.8; O2SAT 96
--- NOTE | 2025-03-01 07:05 | EDNOTE_ITS ---
Emergency Room Addendum Addendum Narrative: 0600: Care assumed from Dr. Muñoz, the previous shift emergency physician. Past medical, surgical, social and family history reviewed. Vitals and home medications reviewed. I will assume the care of the patient at this time, pending consultation with ortho Dr. Rutherford and final disposition. Please refer to the emergency department record for history and examination from initial visit.?The following addendum documentation note is intended to reflect any pending information, findings, or radiology results not included in the patient?s initial chart. 0720: I spoke with ortho Dr. Rutherford, discussed CT results. Requesting pictures of p atients knee. Does not recommend antibiotics and advised patient follow up with him in office 0728: Patient reports a sharp pain since surgery 6 days ago. Denies any falls or injuries. On my examination there is erythema and swelling to his knee which is consistent with post total knee replacement performed 6 days ago. We reviewed all the results, analysis, and treatment plans. Patient is amenable to discharge with instructions to follow up with Dr. Rutherford. Strict return precautions were outlined. Patient was discharged in stable condition.
[2025-03-01 07:27] VITALS: BP 141/87; PULSE 72; RESP 18; O2SAT 98
[2025-03-01 07:44] VITALS: TEMP 37.1
[2025-03-01 08:45] VITALS: BP 132/64; PULSE 16; PULSE 66; RESP 16; TEMP 36.9; O2SAT 98
== END 2025-03-01 08:55 | disposition home or self-care (01) ==
PROVIDERS: Emergency Medicine; Emergency Provider Family Medicine
DX: T81.49XA Infection following a procedure, other surgical site, initial encounter (principal); B99.9 Unspecified infectious disease; R06.02 Shortness of breath; R07.9 Chest pain, unspecified; Z96.652 Presence of left artificial knee joint; Z79.01 Long term (current) use of anticoagulants
CPT/HCPCS: 36415; 71045; 73701; 80053; 81001; 83605; 83735; 83880; 84145; 84443; 85025; 85610; 85652; 85730; 86140; 87040; 93971; 96361; 96365; 96366; 96367; 96375; 99285; A4649; J0692; J1885; J2270; J2405; J3371; J7030; J7040; J7050; Q9967; A9270

== ENCOUNTER 2025-03-03 14:01 | Outpatient (AMB) | payer MEDICARE, MEDICAID, SELFPAY ==
--- NOTE | 2025-03-03 14:28 | PD.ORTHCLVIS ---
Vital signs 03/03/25 14:36 Height 1.63 m Height Method Stated Weight 39.463 kg Weight Measurement Method Estimated by Patient BMI 14.8 BP 145/73 H Blood Pressure Source Automatic Cuff Blood Pressure Location Right Upper Arm Position Sitting Respiration 18 Pulse 83 Pulse Source Monitor Temp 97.3 F Temp Source Temporal Artery Scan Pulse Oximetry (%) 97 Oxygen Delivery Method Room Air Med/Allergies Allergies & Medications Allergies No Known Allergies Allergy (Verified 03/03/25 14:37) Medication Reconciliation omeprazole 40 mg capsule,delayed release 40 mg PO QDAY 09/16/20 [History Confirmed 03/03/25] rivaroxaban 15 mg tablet (Xarelto) 15 mg PO QDAY 09/16/20 [History Confirmed 03/03/25] Held on 02/23/25. Instructions: Resume on 03/09/25. hold for 14 days then resume after 10mg dose is stopped linaclotide 290 mcg capsule (Linzess) 290 mcg PO QDAY 08/31/22 [History Confirmed 03/03/25] dapagliflozin propaned 5 mg-metformin ER 1,000 mg tablet, ext rel 24hr (Xigduo XR) 1 tab PO .qd 02/17/25 [History Confirmed 03/03/25] insulin degludec 100 unit/mL (3 mL) subcutaneous pen 40 unit subcut HS 02/17/25 [History Confirmed 03/03/25] losartan 100 mg tablet 100 mg PO DAILY 02/17/25 [History Confirmed 03/03/25] acetaminophen 500 mg tablet (Acetaminophen Extra Strength) 1,000 mg (2 x 500 mg) PO Q6H PRN pain #90 tabs 02/23/25 [Rx Confirmed 03/03/25] doxycycline hyclate 100 mg tablet 100 mg PO BID #14 tabs 02/23/25 [Rx Confirmed 03/03/25] gabapentin 300 mg capsule 300 mg PO .qhs #30 caps 02/23/25 [Rx Confirmed 03/03/25] rivaroxaban 10 mg tablet (Xarelto) 10 mg PO QDAY #14 tabs 02/23/25 [Rx Confirmed 03/03/25] sennosides 8.6 mg-docusate sodium 50 mg tablet (Senna-S) 1 tab-cap PO QDAY #30 tabs 02/23/25 [Rx Confirmed 03/03/25] cyclobenzaprine 5 mg tablet 5 mg PO QHS PRN muscle spasm #60 tabs 03/03/25 [Rx Confirmed 03/03/25] oxycodone 5 mg tablet 5 mg PO Q6H PRN pain #28 tabs 03/03/25 [Rx Confirmed 03/03/25] Exam Exam Patient is in no acute distress and is cooperative with the examination today. Breathing is nonlabored. In no respiratory distress. Bilateral extremities were evaluated and demonstrates sensation intact to light touch. Palpable pedal pulses are present. No significant edema is present. Bilateral hips were examined. The patient has no pain with log roll of the hips. Internal rotation to 30 degrees and external rotation to 30 degrees is painless. Negative FADIR. Left knee incisions clean dry intact. Range of motion is 0 to 100 degrees. There is no significant erythema. The knee looks like a normal postoperative knee with some mild ecchymosis Assessment and Plan Problem List (1) Degenerative arthritis of knee, bilateral: Status: Acute Plan: Patient is a 79-year-old male with bilateral knee pain And arthritis status post total knee replacement. He went to the emergency room as he noticed some bruising over the weekend. We discussed with him that this is normal. The knee x-ray looks great. We will see him for routine follow-up Advanced Care Planning Discussion Advance care planning discussed with:: patient Office Procedures GNS Level of Care Nursing/Assessment Patient Status: Established Patient Nursing Assessment/Reassesment: Medication Reconciliation, Update PMH in EMR and Vital Signs Coordination of Care: Complex Care and Chronic Disease 1-5, Education Complex Pt/Fam, Consent,records obtained, informed consent, Lab and Imaging orders, Results/Orders obtained and Staff clarify orders Special Needs: Language special needs Established Patient Charge Established Patient Point Assignment: 110 Established Patient Point Charge: EP Level 3 (80-115) MA Intake Visit Data Collection New Patient or Established: Established Patient (seen at [facility] within 3 years) Reason for Visit:: F/U ON KNEE PAIN Seen by Clinical Staff ONLY (RN/MA): No Verbal consent obtained for Telemed visit?: No Sales 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 Administrator Required: 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 PCP or OBGYN visit in last 3 months: Yes Hx Now: No Do You Feel Safe at Home: Yes Authorities Contacted: N/A Questionairres Past Medical History Past Medical History Have you ever been diagnosed with any of the following: Neurological Problems Seizures: No Cardiology Problems Atrial Fibrillation: Yes Peripheral Vascular Disease: Yes Hypercholesterolemia: Yes Congestive Heart Failure: No Hypertension: Yes Respiratory Problems Chronic Obstructive Pulmonary Disease (COPD): No Asthma: No Smoking: No Smoking Exposure: No Stomache/Intestinal Problems Ulcer: Yes Gastroesophageal Reflux Disease: Yes Genital/Urinary Problems Renal Disease: No Musculoskeletal Problems Arthritis: Yes (KNEES) Head,Eye,Nose,Throat Problems Cataracts: Yes (BILATERAL) Endocrine Problems Diabetes Mellitus Type 1: No Diabetes Mellitus Type 2: Yes Blood Problems Sickle Cell Disease: No Other Problems Hospitalization: Yes Shingles: Yes Falls: Yes (SEVERE PAIN TO KNEES WHEN WALKS) Blood Transfusions: No Blood Transfusion Reaction: No Anesthesia Reactions: Yes (cough) MRSA: No Chicken Pox: Yes Measles: Yes Cancer: No Surgical History Pacemaker: Yes Subjective Visit Visit for: follow up visit and knee Immunization / Flu Flu Vaccine in the Last 12 Months: No Flu Vaccine Exclusion Criteria: No Exclusion Criteria History of Present Illness Chief complaint: PRE OP left knee pain Slade is a 79-year-old male withA left total knee replacement 1 week ago. He is doing well. There is some swelling in his left knee which we discussed with him is normal. He is on high-dose Xarelto. Pain Pain level (0-10): 5 Pain duration: ON AND OFF Pain location: inside (medial), outside (lateral) and anterior Pain quality: dull and aching Pain timing: increases with activity and stairs Associated signs & symptoms: weakness and stiffness Ambulatory data Ambulatory device: cane and walker Treatments Improvement with previous injections: No Improvement with PT: No Improvement with NSAIDS: no Review of Systems Review of Systems: All systems negative unless otherwise noted in HPI.
[2025-03-03 14:36] VITALS: BP 145/73; PULSE 83; RESP 18; TEMP 36.3; O2SAT 97; BMI 14.8
== END 2025-03-03 14:35 | disposition home or self-care (01) ==
LOC: HODSRG 14:01
PROVIDERS: Supervising Provider Orthopaedic Surgery Adult Reconstructive Orthopaedic Surgery; Visit Provider Orthopaedic Surgery Adult Reconstructive Orthopaedic Surgery
DX: M17.0 Bilateral primary osteoarthritis of knee (principal); M25.562 Pain in left knee; M25.561 Pain in right knee; Z96.652 Presence of left artificial knee joint; I10 Essential (primary) hypertension; E78.00 Pure hypercholesterolemia, unspecified; I48.91 Unspecified atrial fibrillation
CPT/HCPCS: 99213; G0463

== ENCOUNTER → 2025-03-25 | Outpatient (CLI) | payer MEDICARE, MEDICAID, SELFPAY ==
--- NOTE | 2025-03-25 16:24 | XR_ITS ---
Examination: Left knee 4 views TECHNIQUE: AP oblique and lateral axial left knee 4 views Exam date and time: 51644 hours Comparison February 23, 2025 INDICATIONS: Left knee pain postop FINDINGS: Total left knee arthroplasty. Satisfactory alignment. No fracture. No loosening of the prosthetic components No patellar dislocation IMPRESSION: Total left knee arthroplasty with satisfactory alignment
== END | disposition home or self-care (01) ==
LOC: CDIM 15:53
PROVIDERS: PCP Physician Assistant; Referring Provider Orthopaedic Surgery Adult Reconstructive Orthopaedic Surgery; Visit Provider Orthopaedic Surgery Adult Reconstructive Orthopaedic Surgery
DX: M17.11 Unilateral primary osteoarthritis, right knee (principal); Z96.652 Presence of left artificial knee joint
CPT/HCPCS: 73564

== ENCOUNTER 2025-03-26 13:30 | Outpatient (AMB) | payer MEDICARE, MEDICAID, SELFPAY ==
--- NOTE | 2025-03-26 13:45 | PD.ORTHCLVIS ---
Vital signs 03/26/25 13:52 Height 1.63 m Height Method Stated Weight 82.27 kg Weight Measurement Method Standing Scale BMI 30.9 BP 139/67 H Blood Pressure Source Automatic Cuff Blood Pressure Location Right Upper Arm Position Sitting Respiration 18 Pulse 47 L Pulse Source Monitor Temp 97.9 F Temp Source Temporal Artery Scan Pulse Oximetry (%) 97 Oxygen Delivery Method Room Air Med/Allergies Allergies & Medications Allergies No Known Allergies Allergy (Verified 03/26/25 13:53) Medication Reconciliation omeprazole 40 mg capsule,delayed release 40 mg PO QDAY 09/16/20 [History Confirmed 03/26/25] rivaroxaban 15 mg tablet (Xarelto) 15 mg PO QDAY 09/16/20 [History Confirmed 03/26/25] Held on 02/23/25. Instructions: Resume on 03/09/25. hold for 14 days then resume after 10mg dose is stopped linaclotide 290 mcg capsule (Linzess) 290 mcg PO QDAY 08/31/22 [History Confirmed 03/26/25] dapagliflozin propaned 5 mg-metformin ER 1,000 mg tablet, ext rel 24hr (Xigduo XR) 1 tab PO .qd 02/17/25 [History Confirmed 03/26/25] insulin degludec 100 unit/mL (3 mL) subcutaneous pen 40 unit subcut HS 02/17/25 [History Confirmed 03/26/25] losartan 100 mg tablet 100 mg PO DAILY 02/17/25 [History Confirmed 03/26/25] acetaminophen 500 mg tablet (Acetaminophen Extra Strength) 1,000 mg (2 x 500 mg) PO Q6H PRN pain #90 tabs 02/23/25 [Rx Confirmed 03/26/25] doxycycline hyclate 100 mg tablet 100 mg PO BID #14 tabs 02/23/25 [Rx Confirmed 03/26/25] gabapentin 300 mg capsule 300 mg PO .qhs #30 caps 02/23/25 [Rx Confirmed 03/26/25] rivaroxaban 10 mg tablet (Xarelto) 10 mg PO QDAY #14 tabs 02/23/25 [Rx Confirmed 03/26/25] sennosides 8.6 mg-docusate sodium 50 mg tablet (Senna-S) 1 tab-cap PO QDAY #30 tabs 02/23/25 [Rx Confirmed 03/26/25] cyclobenzaprine 5 mg tablet 5 mg PO QHS PRN muscle spasm #60 tabs 03/03/25 [Rx Confirmed 03/26/25] oxycodone 5 mg tablet 5 mg PO Q6H PRN pain #28 tabs 03/16/25 [Rx Confirmed 03/26/25] Exam Exam Patient is in no acute distress and is cooperative with the examination today. Breathing is nonlabored. In no respiratory distress. Bilateral extremities were evaluated and demonstrates sensation intact to light touch. Palpable pedal pulses are present. No significant edema is present. Bilateral hips were examined. The patient has no pain with log roll of the hips. Internal rotation to 30 degrees and external rotation to 30 degrees is painless. Negative FADIR. Left knee incisions clean dry intact. Range of motion is 0 to 100 degrees. Assessment and Plan Problem List (1) Degenerative arthritis of knee, bilateral: Status: Acute Plan: Patient is a 79-year-old male with bilateral knee pain And arthritis status post total knee replacement. He is doing well status post left total knee replacement. We will see him for routine follow-up in approximately 6 weeks. He may want to discuss the other knee at this time Advanced Care Planning Discussion Advance care planning discussed with:: patient Office Procedures GNS Level of Care Nursing/Assessment Patient Status: Established Patient Nursing Assessment/Reassesment: Medication Reconciliation, Update PMH in EMR and Vital Signs Coordination of Care: Complex Care and Chronic Disease 1-5, Education Complex Pt/Fam, Consent,records obtained, informed consent, Lab and Imaging orders, Results/Orders obtained and Staff clarify orders Special Needs: Language special needs Established Patient Charge Established Patient Point Assignment: 110 Established Patient Point Charge: EP Level 3 (80-115) MA Intake Visit Data Collection New Patient or Established: Established Patient (seen at [facility] within 3 years) Reason for Visit:: F/U 5 WEEKS POST OP Seen by Clinical Staff ONLY (RN/MA): No Verbal consent obtained for Telemed visit?: No Opal Polisher Required: Yes PCP or OBGYN visit in last 3 months: Yes Hx Now: No Do You Feel Safe at Home: Yes Authorities Contacted: N/A Questionairres Past Medical History Past Medical History Have you ever been diagnosed with any of the following: Neurological Problems Seizures: No Cardiology Problems Atrial Fibrillation: Yes Peripheral Vascular Disease: Yes Hypercholesterolemia: Yes Congestive Heart Failure: No Hypertension: Yes Respiratory Problems Chronic Obstructive Pulmonary Disease (COPD): No Asthma: No Smoking: No Smoking Exposure: No Stomache/Intestinal Problems Ulcer: Yes Gastroesophageal Reflux Disease: Yes Genital/Urinary Problems Renal Disease: No Musculoskeletal Problems Arthritis: Yes (KNEES) Head,Eye,Nose,Throat Problems Cataracts: Yes (BILATERAL) Endocrine Problems Diabetes Mellitus Type 1: No Diabetes Mellitus Type 2: Yes Blood Problems Sickle Cell Disease: No Other Problems Hospitalization: Yes Shingles: Yes Falls: Yes (SEVERE PAIN TO KNEES WHEN WALKS) Blood Transfusions: No Blood Transfusion Reaction: No Anesthesia Reactions: Yes (cough) MRSA: No Chicken Pox: Yes Measles: Yes Cancer: No Surgical History Pacemaker: Yes Subjective Visit Visit for: follow up visit, post op #2 and knee Immunization / Flu Flu Vaccine in the Last 12 Months: Yes Flu Vaccine Exclusion Criteria: Already Received History of Present Illness Chief complaint: F/U 5 WEEK POST OP Slade is a 79-year-old male withA left total knee replacement 5 week ago. He is doing well. THe reports his left knee feels significantly better than the right Personal History Occupation: RETIRED Red flag PMH: BMI BMI Counceling provided: Yes Pain Pain level (0-10): 6 Pain duration: ALL DAY Pain location: outside (lateral), anterior and posterior Pain quality: sharp, dull and aching Pain timing: increases with activity Associated signs & symptoms: stiffness Ambulatory data Ambulatory device: cane Treatments Improvement with previous injections: No Improvement with PT: No Improvement with NSAIDS: no Review of Systems Review of Systems: All systems negative unless otherwise noted in HPI.
[2025-03-26 13:52] VITALS: BP 139/67; PULSE 47; RESP 18; TEMP 36.6; O2SAT 97; BMI 30.9
== END 2025-03-26 14:21 | disposition home or self-care (01) ==
LOC: HODSRG 13:30
PROVIDERS: Supervising Provider Orthopaedic Surgery Adult Reconstructive Orthopaedic Surgery; Visit Provider Orthopaedic Surgery Adult Reconstructive Orthopaedic Surgery
DX: M17.0 Bilateral primary osteoarthritis of knee (principal); M25.562 Pain in left knee; M25.561 Pain in right knee; Z96.652 Presence of left artificial knee joint; I10 Essential (primary) hypertension; E11.9 Type 2 diabetes mellitus without complications; E78.00 Pure hypercholesterolemia, unspecified; I48.91 Unspecified atrial fibrillation; K21.9 Gastro-esophageal reflux disease without esophagitis
CPT/HCPCS: 99213; G0463

== ENCOUNTER 2025-05-07 10:12 | Outpatient (AMB) | payer MEDICARE, MEDICAID, SELFPAY ==
[2025-05-07 10:25] VITALS: BP 143/82; PULSE 67; RESP 18; TEMP 36.3; O2SAT 98; BMI 31.4
--- NOTE | 2025-05-07 10:25 | ORTHONT_ITS ---
Vital signs 05/07/25 10:25 Height 1.63 m Height Method Stated Weight 83.546 kg Weight Measurement Method Standing Scale BMI 31.4 BP 143/82 H Blood Pressure Source Automatic Cuff Blood Pressure Location Left Upper Arm Position Sitting Respiration 18 Pulse 67 Pulse Source Monitor Temp 97.4 F Temp Source Temporal Artery Scan Pulse Oximetry (%) 98 Oxygen Delivery Method Room Air Med/Allergies Allergies & Medications Allergies No Known Allergies Allergy (Verified 05/07/25 10:26) Medication Reconciliation omeprazole 40 mg capsule,delayed release 40 mg PO QDAY 09/16/20 [History Confirmed 05/07/25] rivaroxaban 15 mg tablet (Xarelto) 15 mg PO QDAY 09/16/20 [History Confirmed 05/07/25] Held on 02/23/25. Instructions: Resume on 03/09/25. hold for 14 days then resume after 10mg dose is stopped linaclotide 290 mcg capsule (Linzess) 290 mcg PO QDAY 08/31/22 [History Confirmed 05/07/25] dapagliflozin propaned 5 mg-metformin ER 1,000 mg tablet, ext rel 24hr (Xigduo XR) 1 tab PO .qd 02/17/25 [History Confirmed 05/07/25] insulin degludec 100 unit/mL (3 mL) subcutaneous pen 40 unit subcut HS 02/17/25 [History Confirmed 05/07/25] losartan 100 mg tablet 100 mg PO DAILY 02/17/25 [History Confirmed 05/07/25] acetaminophen 500 mg tablet (Acetaminophen Extra Strength) 1,000 mg (2 x 500 mg) PO Q6H PRN pain #90 tabs 02/23/25 [Rx Confirmed 05/07/25] doxycycline hyclate 100 mg tablet 100 mg PO BID #14 tabs 02/23/25 [Rx Confirmed 05/07/25] gabapentin 300 mg capsule 300 mg PO .qhs #30 caps 02/23/25 [Rx Confirmed 05/07/25] rivaroxaban 10 mg tablet (Xarelto) 10 mg PO QDAY #14 tabs 02/23/25 [Rx Confirmed 05/07/25] sennosides 8.6 mg-docusate sodium 50 mg tablet (Senna-S) 1 tab-cap PO QDAY #30 tabs 02/23/25 [Rx Confirmed 05/07/25] cyclobenzaprine 5 mg tablet 5 mg PO QHS PRN muscle spasm #60 tabs 03/03/25 [Rx Confirmed 05/07/25] oxycodone 5 mg tablet 5 mg PO Q6H PRN pain #28 tabs 04/02/25 [Rx Confirmed 05/07/25] Exam Exam Patient is in no acute distress and is cooperative with the examination today. Breathing is nonlabored. In no respiratory distress. Bilateral extremities were evaluated and demonstrates sensation intact to light touch. Palpable pedal pulses are present. No significant edema is present. Bilateral hips were examined. The patient has no pain with log roll of the hips. Internal rotation to 30 degrees and external rotation to 30 degrees is painless. Negative FADIR. Left knee incisions clean dry intact. Range of motion is 0 to 100 degrees. Right knee demonstrates varus deformity of 20 degrees. X-rays demonstrate significantnarrowing medially with 20 degrees of varus deformity. There is complete obliteration of the medial joint space on the right Assessment and Plan Problem List (1) Status post total knee replacement, left: Status: Acute (2) Arthritis of right knee: Status: Acute Plan: Patient is an 80-year-old male status post left total knee replacement 2 months out and is doing well. He reports the right knee is significantly bothering him and he would like to get surgery on this side. He said multiple injections and Tylenol. He had a recent cardiac clearance and we would have to stop his Xarelto again. He has significant varus deformity of approximately 20 degrees. The nature and purpose of the total knee replacement, alternative method(s) of treatment, the material risks involved, and the possibility of complications were fully explained to the patient. The patient does NOT have any of the following contraindications to TKA: - Active infection of the knee joint, OR - Active systemic bacteremia, OR - Active skin infection or open wound at surgical site, OR - Neuropathic arthritis, OR - Severe, rapidly progressive neurological disease, OR - Severe medical condition that makes risks of surgery outweigh the potential benefit The patient was told the most common risks and complications associated with a total knee replacement include, but are not limited to: blood clots in the leg, fatal pulmonary embolism, dislocation of the prosthesis, intraoperative and postoperative fractures of the femur or tibia, infection, failure of the prosthesis or grafting materials, complications from anesthesia, reactions to blood transfusions, postoperative leg length inequality, instability of the knee replacement, nerve damage or injury, vascular injury, delayed wound healing, infection, other injury or even . In addition, there are risks associated with anesthesia given during this operation. Also, the patient was told that after undergoing a total knee replacement there may still be persistent pain or disability. The patient was informed that the success of this operation in part depends upon the mechanical devices which are going to be implanted and that these devices can fail or malfunction, and may need to be repaired or replaced and there are no guarantees as to the longevity of this device or its parts and that it or its parts could fail prematurely. The patient was also notified that during the course of surgery, there may be a need to use bone graft from donors, and that any bone graft used will be carefully screened for communicable diseases, including AIDS, hepatitis, [id number], or other diseases, but despite the screening procedures, there is a small chance that they could contract one of these diseases. Finally, the patient was asked to follow completely and fully with all advice and recommended treatments, and that recovery and ultimate outcome are affected by their compliance with recommended treatment. We discussed the risks, benefits and treatment alternatives, and the patient is interested in proceeding with surgery. We will try to set this up as expeditiously as possible. Advanced Care Planning Discussion Advance care planning discussed with:: patient Office Procedures GNS Level of Care Nursing/Assessment Patient Status: Established Patient Nursing Assessment/Reassesment: Medication Reconciliation, Update PMH in EMR and Vital Signs Coordination of Care: Complex Care and Chronic Disease 1-5, Education Complex Pt/Fam, Consent,records obtained, informed consent, Results/Orders obtained and Staff clarify orders Special Needs: Language special needs Established Patient Charge Established Patient Point Assignment: 95 Established Patient Point Charge: EP Level 3 (80-115) MA Intake Visit Data Collection New Patient or Established: Established Patient (seen at [facility] within 3 years) Reason for Visit:: FOLLOW UP Seen by Clinical Staff ONLY (RN/MA): No Utilities Operator Required: Yes PCP or OBGYN visit in last 3 months: Yes Hx Now: No Do You Feel Safe at Home: Yes Authorities Contacted: N/A Questionairres Past Medical History Past Medical History Have you ever been diagnosed with any of the following: Neurological Problems Seizures: No Cardiology Problems Atrial Fibrillation: Yes Peripheral Vascular Disease: Yes Hypercholesterolemia: Yes Congestive Heart Failure: No Hypertension: Yes Respiratory Problems Chronic Obstructive Pulmonary Disease (COPD): No Asthma: No Smoking: No Smoking Exposure: No Stomache/Intestinal Problems Ulcer: Yes Gastroesophageal Reflux Disease: Yes Genital/Urinary Problems Renal Disease: No Musculoskeletal Problems Arthritis: Yes (KNEES) Head,Eye,Nose,Throat Problems Cataracts: Yes (BILATERAL) Endocrine Problems Diabetes Mellitus Type 1: No Diabetes Mellitus Type 2: Yes Blood Problems Sickle Cell Disease: No Other Problems Hospitalization: Yes Shingles: Yes Falls: Yes (SEVERE PAIN TO KNEES WHEN WALKS) Blood Transfusions: No Blood Transfusion Reaction: No Anesthesia Reactions: Yes (cough) MRSA: No Chicken Pox: Yes Measles: Yes Cancer: No Surgical History Pacemaker: Yes Subjective Visit Visit for: follow up visit, post op #2 and knee Immunization / Flu Flu Vaccine in the Last 12 Months: Yes Flu Vaccine Exclusion Criteria: No Exclusion Criteria and Already Received History of Present Illness Chief complaint: F/U 5 WEEK POST OP Slade is a 79-year-old male withA left total knee replacement 10 week ago. He is doing well. He Reports that his left knee feels great. His right knee is bothering him significantly. He has had multiple injections as well as anti- inflammatories for the right knee. He reports that deformity keeps on increasing and is now even more bowed for the right knee Personal History Occupation: RETIRED Red flag PMH: BMI BMI Counceling provided: Yes Pain Pain level (0-10): 6 Pain duration: ALL DAY Pain location: outside (lateral), anterior and posterior Pain quality: sharp, dull and aching Pain timing: increases with activity Associated signs & symptoms: stiffness Ambulatory data Ambulatory device: cane and none Treatments Improvement with previous injections: No Improvement with PT: No Improvement with NSAIDS: no Review of Systems Review of Systems: All systems negative unless otherwise noted in HPI.
--- NOTE | 2025-05-07 10:26 | XR_ITS ---
Examination: Knee bilateral, 8 views Technique: Knee AP, lateral, oblique, axial H knee total 8 views Date and time of exam: May 07, 2025 1041 hours INDICATIONS: Left knee replacement 2 months ago, chronic right knee pain years FINDINGS: Severe osteopenia Total left knee arthroplasty with satisfactory alignment Severe right knee tricompartment osteoarthritis with multiple suprapatellar and posterior ossified joint bodies No fracture No dislocation IMPRESSION: Severe right knee tricompartment osteoarthritis, including severe narrowing [id number] medial joint space right knee
== END 2025-05-07 10:30 | disposition home or self-care (01) ==
LOC: HODSRG 10:12
PROVIDERS: Supervising Provider Orthopaedic Surgery Adult Reconstructive Orthopaedic Surgery; Visit Provider Orthopaedic Surgery Adult Reconstructive Orthopaedic Surgery
DX: Z96.652 Presence of left artificial knee joint (principal); M17.11 Unilateral primary osteoarthritis, right knee; I10 Essential (primary) hypertension; E78.00 Pure hypercholesterolemia, unspecified; I48.91 Unspecified atrial fibrillation; E11.9 Type 2 diabetes mellitus without complications
CPT/HCPCS: 73564; 99213; G0463

== ENCOUNTER 2025-06-25 09:16 | Outpatient (AMB) | payer MEDICARE, MEDICAID, SELFPAY ==
--- NOTE | 2025-06-25 09:52 | PD.ORTHCLVIS ---
Vital signs 06/25/25 10:12 Height 1.63 m Height Method Stated Weight 84.17 kg Weight Measurement Method Standing Scale BMI 31.6 BP 157/78 H Blood Pressure Source Automatic Cuff Blood Pressure Location Left Upper Arm Position Sitting Respiration 19 Pulse 81 Pulse Source Monitor Temp 97.5 F Temp Source Temporal Artery Scan Pulse Oximetry (%) 96 Oxygen Delivery Method Room Air Med/Allergies Allergies & Medications Allergies No Known Allergies Allergy (Verified 06/25/25 10:12) Exam Exam Patient is in no acute distress and is cooperative with the examination today. Breathing is nonlabored. In no respiratory distress. Bilateral extremities were evaluated and demonstrates sensation intact to light touch. Palpable pedal pulses are present. No significant edema is present. Bilateral hips were examined. The patient has no pain with log roll of the hips. Internal rotation to 30 degrees and external rotation to 30 degrees is painless. Negative FADIR. Left knee incisions clean dry intact. Range of motion is 0 to 100 degrees. Right knee demonstrates varus deformity of 20 degrees. X-rays demonstrate significantnarrowing medially with 20 degrees of varus deformity. There is complete obliteration of the medial joint space on the right Assessment and Plan Problem List (1) Status post total knee replacement, left: Status: Acute (2) Arthritis of right knee: Status: Acute Plan: Patient is an 80-year-old male status post left total knee replacement 2 months out and is doing well. He reports the right knee is significantly bothering him and he would like to get surgery on this side. He said multiple injections and Tylenol. He had a recent cardiac clearance and we would have to stop his Xarelto again. He has significant varus deformity of approximately 20 degrees. The nature and purpose of the total knee replacement, alternative method(s) of treatment, the material risks involved, and the possibility of complications were fully explained to the patient. The patient does NOT have any of the following contraindications to TKA: - Active infection of the knee joint, OR - Active systemic bacteremia, OR - Active skin infection or open wound at surgical site, OR - Neuropathic arthritis, OR - Severe, rapidly progressive neurological disease, OR - Severe medical condition that makes risks of surgery outweigh the potential benefit The patient was told the most common risks and complications associated with a total knee replacement include, but are not limited to: blood clots in the leg, fatal pulmonary embolism, dislocation of the prosthesis, intraoperative and postoperative fractures of the femur or tibia, infection, failure of the prosthesis or grafting materials, complications from anesthesia, reactions to blood transfusions, postoperative leg length inequality, instability of the knee replacement, nerve damage or injury, vascular injury, delayed wound healing, infection, other injury or even . In addition, there are risks associated with anesthesia given during this operation. Also, the patient was told that after undergoing a total knee replacement there may still be persistent pain or disability. The patient was informed that the success of this operation in part depends upon the mechanical devices which are going to be implanted and that these devices can fail or malfunction, and may need to be repaired or replaced and there are no guarantees as to the longevity of this device or its parts and that it or its parts could fail prematurely. The patient was also notified that during the course of surgery, there may be a need to use bone graft from donors, and that any bone graft used will be carefully screened for communicable diseases, including AIDS, hepatitis, Emeka-Creutzfeldt, or other diseases, but despite the screening procedures, there is a small chance that they could contract one of these diseases. Finally, the patient was asked to follow completely and fully with all advice and recommended treatments, and that recovery and ultimate outcome are affected by their compliance with recommended treatment. We discussed the risks, benefits and treatment alternatives, and the patient is interested in proceeding with surgery. We will try to set this up as expeditiously as possible. Advanced Care Planning Discussion Advance care planning discussed with:: patient Office Procedures GNS Level of Care Nursing/Assessment Patient Status: Established Patient Nursing Assessment/Reassesment: Medication Reconciliation, Update PMH in EMR and Vital Signs Coordination of Care: Complex Care and Chronic Disease 1-5, Education Complex Pt/Fam, Consent,records obtained, informed consent, 1 Ins Authorization, Results/Orders obtained and Staff clarify orders Special Needs: Language special needs Established Patient Charge Established Patient Point Assignment: 110 Established Patient Point Charge: EP Level 3 (80-115) MA Intake Visit Data Collection New Patient or Established: Established Patient (seen at [facility] within 3 years) Reason for Visit:: FOLLOW UP RTKA/PRE OP L TKA Seen by Clinical Staff ONLY (RN/MA): No Hospital Account Liaison Required: Yes PCP or OBGYN visit in last 3 months: Yes Hx Now: No Do You Feel Safe at Home: Yes Authorities Contacted: N/A Questionairres Past Medical History Past Medical History Have you ever been diagnosed with any of the following: Neurological Problems Seizures: No Cardiology Problems Atrial Fibrillation: Yes Peripheral Vascular Disease: Yes Hypercholesterolemia: Yes Congestive Heart Failure: No Hypertension: Yes Respiratory Problems Chronic Obstructive Pulmonary Disease (COPD): No Asthma: No Smoking: No Smoking Exposure: No Stomache/Intestinal Problems Ulcer: Yes Gastroesophageal Reflux Disease: Yes Genital/Urinary Problems Renal Disease: No Musculoskeletal Problems Arthritis: Yes (KNEES) Head,Eye,Nose,Throat Problems Cataracts: Yes (BILATERAL) Endocrine Problems Diabetes Mellitus Type 1: No Diabetes Mellitus Type 2: Yes Blood Problems Sickle Cell Disease: No Other Problems Hospitalization: Yes Shingles: Yes Falls: Yes (SEVERE PAIN TO KNEES WHEN WALKS) Blood Transfusions: No Blood Transfusion Reaction: No Anesthesia Reactions: Yes (cough) MRSA: No Chicken Pox: Yes Measles: Yes Cancer: No Surgical History Pacemaker: Yes Subjective Visit Visit for: follow up visit, post op #3 and knee Immunization / Flu Flu Vaccine in the Last 12 Months: Yes Flu Vaccine Exclusion Criteria: Already Received History of Present Illness Chief complaint: POST OP R TKA/LEFT TKA Slade is a 79-year-old male withA left total knee replacement 10 week ago. He is doing well. He Reports that his left knee feels great. His right knee is bothering him significantly. He has had multiple injections as well as anti-inflammatories for the right knee. He reports that deformity keeps on increasing and is now even more bowed for the right knee. The right knee pain is affecting his quality of life and happiness Personal History Occupation: RETIRED Red flag PMH: BMI BMI Counceling provided: Yes Additional comments: PATIENT ALREADY HAS WALKER FROM R TKA 4 MTHS AGO Pain Pain level (0-10): 9 (RIGHT KNEE) Pain duration: ALL DAY Pain location: outside (lateral), anterior and posterior Pain quality: sharp, dull and aching Pain timing: increases with activity Associated signs & symptoms: stiffness Ambulatory data Ambulatory device: none Treatments Improvement with previous injections: No Improvement with PT: No Improvement with NSAIDS: no Review of Systems Review of Systems: All systems negative unless otherwise noted in HPI.
[2025-06-25 10:12] VITALS: BP 157/78; PULSE 81; RESP 19; TEMP 36.4; O2SAT 96; BMI 31.6
== END 2025-06-25 10:10 | disposition home or self-care (01) ==
LOC: HODSRG 09:16
PROVIDERS: Supervising Provider Orthopaedic Surgery Adult Reconstructive Orthopaedic Surgery; Visit Provider Orthopaedic Surgery Adult Reconstructive Orthopaedic Surgery
DX: Z96.652 Presence of left artificial knee joint (principal); M17.11 Unilateral primary osteoarthritis, right knee; M21.10 Varus deformity, not elsewhere classified, unspecified site; I10 Essential (primary) hypertension; E78.00 Pure hypercholesterolemia, unspecified; I48.91 Unspecified atrial fibrillation; K21.9 Gastro-esophageal reflux disease without esophagitis; E11.9 Type 2 diabetes mellitus without complications
CPT/HCPCS: 99213; G0463

== ENCOUNTER → 2025-07-30 | Outpatient (CLI) | payer MEDICARE, MEDICAID, SELFPAY ==
--- NOTE | 2025-07-30 12:19 | XR_ITS ---
Examination: CT right lower extremity, without contrast. 2-D sagittal reconstructions. 2-D coronal reconstructions. 3-D reconstructions. Date and time of exam:July 30, 2025 1249 hours INDICATIONS: Diagnosis right knee unilateral osteoarthritis, right knee pain 5 years CTDI: vol (mGy):9.96 DLP: (mGycm):776 Technique: Multiple 1.25 mm axial sections of the right lower extremity without intravenous contrast have been obtained. 2-D sagittal and coronal reconstructions have been obtained. 3-D reconstructions have been obtained. Low dose protocols were performed. One or more of the following dose reduction techniques were used; automated exposure control, adjustment of the mA and/or KV according to patient size, use of iterative reconstruction technique. Findings: Severe osteopenia Mild to moderate narrowing right hip joint No right hip fracture or dislocation Severe tricompartment osteoarthritis, severe joint space narrowing and osteophyte formation Ossified joint bodies, including 32 mm ossified body in the suprapatellar joint space and 20 mm ossified body in the posterior joint space IMPRESSION: Severe tricompartment osteoarthritis
== END | disposition home or self-care (01) ==
PROVIDERS: PCP Physician Assistant; Referring Provider Orthopaedic Surgery Adult Reconstructive Orthopaedic Surgery; Visit Provider Orthopaedic Surgery Adult Reconstructive Orthopaedic Surgery
DX: M17.11 Unilateral primary osteoarthritis, right knee (principal)
CPT/HCPCS: 73700

== ENCOUNTER 2025-08-07 10:35 | Day surgery (SDC) | payer MEDICARE, MEDICAID, SELFPAY ==
[2025-08-05 09:03] VITALS: BMI 31.0
[2025-08-05 10:12] LABS: Basophils # (Auto) 0.1 Thou/mm3 (0.0-0.2); Basophils % (Auto) 2 % (0-2.5); Eosinophils # (Auto) 0.2 Thou/mm3 (0.0-0.5); Eosinophils % (Auto) 4 % (0-10); Hematocrit 38.6 % (41.0-53.0); Hemoglobin 12.8 g/dL (13.5-16.0); Immature Granulocytes Auto 0.01 Thou/mm3 (0.00-0.00); Lymphocytes # (Auto) 1.3 Thou/mm3 (1.0-4.8); Lymphocytes % (Auto) 29 % (10-50); Mean Corpuscular HGB Conc 33.2 g/dl (31.0-37.0); Mean Corpuscular Hemoglobin 29.3 pg (25.0-35.0); Mean Corpuscular Volume 88 fL (80-100); Monocytes # (Auto) 0.5 Thou/mm3 (0.0-0.8); Monocytes % (Auto) 12 % (0-12); Neutrophils # (Auto) 2.4 Thou/mm3 (1.8-7.7); Neutrophils % (Auto) 53 % (37-80); Nucleated Red Blood Cell # 0.00 Thou/mm3 (0.00-0.00); Nucleated Red Blood Cell % 0 /100 WBC (0); Platelet Count 196 Thou/mm3 (140-440); RDW Standard Deviation 49.8 fL (35.1-43.9); Red Blood Count 4.37 Miln/mm3 (4.50-5.90); White Blood Count 4.5 Thou/mm3 (3.8-10.6)
[2025-08-05 10:19] LABS: INR 1.0 (0.9-1.3); Partial Thromboplastin Time 26.8 Seconds (22.0-36.0); Prothrombin Time 11.3 Seconds (9.0-12.2)
[2025-08-05 10:29] LABS: Alanine Aminotransferase 11 U/L (10-49); Albumin, Serum 4.5 gm/dL (3.4-4.8); Albumin/Globulin Ratio 1.7 (1.2-2.2); Alkaline Phosphatase 79 U/L (46-116); Anion Gap 10 (7-16); Aspartate Amino Transferase 16 U/L (0-34); BUN/Creatinine Ratio 18 Ratio (12-20); Bilirubin,Total 0.7 mg/dL (0.3-1.2); Blood Urea Nitrogen 18 mg/dL (9-23); Calcium 9.6 mg/dL (8.3-10.6); Calcium (Corrected) 9.6 mg/dL (8.5-10.1); Carbon Dioxide 23.3 mMol/L (20.0-31.0); Chloride 107 mMol/L (98-107); Creatinine (Component) 1.0 mg/dL (0.6-1.3); Estimated Creatinine Clearance 58.9 mL/min (>60); Globulin 2.7 gm/dL (2.3-3.5); Glucose 150 mg/dL (74-106); Osmolality,Calculated 284 (275-295); Potassium 4.2 mMol/L (3.4-5.1); Sodium 140 mMol/L (136-145); Total Protein 7.2 gm/dL (5.7-8.2); eGFR > 60 See Note
--- NOTE | 2025-08-06 14:26 | SUR.PREOP ---
Cardiac records reviewed with Dr Crum.
[2025-08-07] VITALS (15 sets, daily range): BP systolic 125–141; BP diastolic 69–89; PULSE 60–66; RESP 12–20; TEMP 36.2–36.4; O2SAT 93–98; BMI 30.2
[2025-08-07] MEDS: ACETAMINOPHEN 325 MG TABLET 650 MG PO (09:45)
[2025-08-07] MEDS: PREGABALIN 75 MG CAPSULE PO (09:46)
[2025-08-07] MEDS: MELOXICAM 7.5 MG TABLET PO (09:47)
[2025-08-07] MEDS: RINGERS LACTATED 1000 ML 1,000 ML 20 ML IV (09:48)
--- NOTE | 2025-08-07 15:22 | ESOP_ITS ---
Date of Procedure 08/07/25 Pre Op Diagnosis right knee osteoarthritis Post Op Diagnosis right knee osteoarthritis Procedure left total knee replacement Findings full thickness cartilage loss and osteophytes Procedure Description Indication: The patient is a 80 year old who has a long history of right knee pain. X-rays show degenerative arthritis involving the knee. Over the past several years the patient has had increasing pain, progressive limitation in function. He has failed conservative measures including activity modification, physical therapy, injections, anti-inflammatories, and assistive devices. After a lengthy discussion of the risks and benefits, the patient presents now for total knee replacement. The nature and purpose of the total knee replacement, alternative method(s) of treatment, the material risks involved, and the possibility of complications were fully explained to the patient. The patient was told the most common risks and complications associated with a total knee replacement include, but are not limited to blood clots in the leg, fatal pulmonary embolism, dislocation of the prosthesis, intraoperative and postoperative fractures of the femur or tibia, infection, failure of the prosthesis or grafting materials, complications from anesthesia, reactions to blood transfusions, postoperative leg length inequality, instability of the knee replacement, nerve damage or injury, vascular injury, delayed wound healing, infections, other injury or even . In addition, there are risks associated with anesthesia given during this operation, temporary or permanent numbness on the skin lateral to the incision can be a complication unique to total knee surgery, and kneeling can be painful after knee replacement surgery. Also, the patient was told that after undergoing a total knee replacement there may still be pain or disability. We discussed with the patient that we will be using a robot-assisted technology. We discussed that there is a possibility of converting to manual instrumentation. The patient was informed that the success of this operation in part depends upon the mechanical devices which are going to be implanted and that these devices can fail or malfunction, and may need to be repaired or replaced and there are no guarantees as to the longevity of this device or its part and that it or its parts could fail prematurely. Finally, the patient was asked to follow completely and fully with all advice and recommended treatments, and that recovery and ultimate outcome are affected by their compliance with recommended treatment. Surgical technique: Patient was marked and consented in the pre-operative area. The patient was brought to the operating room and placed on the operating table in a supine position. Prior to positioning, a timeout procedure was performed between the surgeon, the anesthesiologist, and the nursing staff where the patient and the operative side were identified and confirmed. After adequate general anesthetic was obtained, the right lower extremity was prepped and draped in the usual sterile fashion. A weight based dose of Cefazolin were administered within 1 hour prior to incision. The robot was preregistered and calirated before the incision. The extremity was exsanguinated with an esmarch badge and tourniquet inflated to 250mmHg. A midline incision was made. A median parapatellar arthrotomy was made. The patella was subluxed laterally. A medial release was performed to expose the medial tibia. His femoral and tibial pins were placed through an intra incisional manner for both cases. Every effort was made to ensure that the distalmost aspect of the pin was hung in the second cortex. The arrays were then tightened several times to ensure that it was fixed for the remainder of the case. Both femoral and tibial checkpoints were then placed. We then went through the registration process of the bone. We then assessed the knee deformity and attempted to correct it. We also used the robot to aid in judging laxity in both extension and flexion. Final based on laxity and alignment we changed the preoperative assessment to obtain proper proper implant positioning and to correct deformity. Attention was then placed to the tibia. We made a tibial cut using the robot ensuring that both the MCL and the patella tendon were protected with retractors. We then went to the femur and made the posterior cut followed by the anterior cut and the anterior chamfer. The bone was then removed and we made a distal femur cut and a posterior chamfer cut. We verified all cuts. We cut for a PS given the 21 degree preoperative deformity. A trial reduction was performed with a size 5 femoral component and a size 4 keeled tibial component. The patella tracked centrally, and no lateral retinacular release was necessary. The trial implants were removed. The arrays, pins, and checkpoints were all removed. We performed a verification that all pins were removed. The cut bone surfaces were lavaged. A size 5 right femoral component, a size 4 keeled tibial component were impacted into position using 2 bags of palacos. A trial insert was placed. The knee was left in extension until the cement hardened. The knee was felt to be well balanced in the sagittal and coronal plane. The final 4x11mm posterior-substituting articular insert was impacted into the tibial tray. The knee was brought out to full extension, flexed up to 120 degrees. It was stable to varus and valgus stress and appropriately balanced in flexion and extension. The wounds were copiously irrigated following deflation of tourniquet. The medial retinaculum was reapproximated with #1 vicryl and quill. The subcutaneous tissues were closed with 0 and 2-0 interrupted Vicryl. The skin was closed with 3-0 Monofilament V loc suture. A sterile dressing was applied. The patient was transferred to a bed and brought to recovery in stable condition. The patient tolerated the procedure well. There were no intraoperative complications. Sponge and needle counts were correct times 2. As the attending surgeon, I attest I was present and performed the entire operation. Grafts/Implants Size 5 PS Femur Size 4 Tibia 11mm poly PS 2 bags of palacos Anesthesia spinal Drains none Implants fred Pathology / specimen None Pathology comment: none Estimated Blood Loss 150 Condition Stable Disposition same day Surgeon Gaurav Rutherford MD Surgical Staff Operation Date: 08/07/25 12:30 Case Staff CHIEF DEPUTY CLERK/BAILIFF: Alicia Razo RN First Assistant: Aysha Krishnan
--- NOTE | 2025-08-07 15:27 | XR_ITS ---
Examination: Right knee 2 views Technique one AP lateral right knee 2 views Date and time: August 07, 2025 1551 hours INDICATIONS: Postop knee replacement FINDINGS: Total right knee arthroplasty. Satisfactory alignment No fracture Prominent osteopenia IMPRESSION: Total right knee replacement with satisfactory alignment
--- NOTE | 2025-08-07 15:35 | SUR.PHASEI ---
1535: Pt. AAOx4, vitals stable, breathing unlabored, no complaint of pain or nausea, dressing to right knee CDI, no active bleed noted, pt. able to move bilateral legs, cap refill to bilateral feet less than 3 seconds, left dorsalis pedis pulse strong, right dorsalis pedis pulse weak but palpated. Report received from Diana OGDEN and Alicia REYNA.
--- NOTE | 2025-08-07 16:36 | SUR.PHASEII ---
1636: Pt. AAOx4, vitals stable, breathing unlabored, no complaint of pain or nausea, dressing to right knee CDI, no active bleed noted, pt. able to move bilateral legs, cap refill to bilateral feet less than 3 seconds, left dorsalis pedis pulse strong, right dorsalis pedis pulse weak but palpated. Pt. tolerated bites of pudding and sips of water well. Family at bedside with pt. Report given to Azam OGDEN to resume care.
--- NOTE | 2025-08-07 20:05 | SUR.PHASEII ---
pt awake and alert, breathing unlabored on room air. v/s stable. pt dressing to right lower extremity cdi. pt cleared by physical therapist Al. pt able to ambulate to pacu bathroom using walker. d/c instructions given with [place] in room, all questions answered. pt d/c via wheelchair with all belongings.
== END 2025-08-07 20:05 | disposition home or self-care (01) ==
PROVIDERS: Anesthesiology; PCP Physician Assistant; Referring Provider Orthopaedic Surgery Adult Reconstructive Orthopaedic Surgery; Visit Provider Orthopaedic Surgery Adult Reconstructive Orthopaedic Surgery
PROC: (CPT 27447; principal; 2025-08-07 12:15)
DX: M17.11 Unilateral primary osteoarthritis, right knee (principal); M25.761 Osteophyte, right knee
CPT/HCPCS: 27447; 20985; 36415; 73560; 80053; 85025; 85610; 85730; 97162; A4217; A4649; C1713; C1776; J0690; J1100; J2405; J2704; J2795; J3010; J3490; J7120; J7999; A4648; A9270

== ENCOUNTER 2025-08-21 08:33 | Outpatient (AMB) | payer MEDICARE, MEDICAID, SELFPAY ==
--- NOTE | 2025-08-21 09:11 | PD.ORTHCLVIS ---
Vital signs 08/21/25 09:12 Height 1.65 m Height Method Stated Weight 81.675 kg Weight Measurement Method Standing Scale BMI 29.9 BP 137/68 H Blood Pressure Source Automatic Cuff Blood Pressure Location Left Upper Arm Position Sitting Respiration 19 Pulse 80 Pulse Source Monitor Temp 97.3 F Temp Source Temporal Artery Scan Pulse Oximetry (%) 97 Oxygen Delivery Method Room Air Med/Allergies Allergies & Medications Allergies No Known Allergies Allergy (Verified 08/21/25 09:13) Medication Reconciliation rivaroxaban 15 mg tablet (Xarelto) 15 mg PO QDAY 09/16/20 [History Confirmed 08/21/25] dapagliflozin propaned 5 mg-metformin ER 1,000 mg tablet, ext rel 24hr (Xigduo XR) 1 tab PO BID 02/17/25 [History Confirmed 08/21/25] losartan 100 mg tablet 100 mg PO DAILY 02/17/25 [History Confirmed 08/21/25] insulin glargine-yfgn 100 unit/mL (3 mL) subcutaneous pen 25 unit subcut HS 08/05/25 [History Confirmed 08/21/25] acetaminophen 500 mg tablet (Acetaminophen Extra Strength) 1,000 mg (2 x 500 mg) PO Q6H PRN pain #90 tabs 08/07/25 [Rx Confirmed 08/21/25] doxycycline hyclate 100 mg tablet 100 mg PO BID #14 tabs 08/07/25 [Rx Confirmed 08/21/25] gabapentin 300 mg capsule 300 mg PO .qhs #30 caps 08/07/25 [Rx Confirmed 08/21/25] oxycodone 5 mg tablet 5 mg PO Q6H PRN pain #28 tabs 08/07/25 [Rx Confirmed 08/21/25] sennosides 8.6 mg-docusate sodium 50 mg tablet (Senna-S) 1 tab-cap PO QDAY #30 tabs 08/07/25 [Rx Confirmed 08/21/25] oxycodone 5 mg tablet 5 mg PO Q6H PRN pain #28 tabs 08/18/25 [Rx Confirmed 08/21/25] Exam Exam Patient is in no acute distress and is cooperative with the examination today. Breathing is nonlabored. Patient has a normal mood and affect. Bilateral extremities were evaluated and demonstrates sensation intact to light touch. Palpable pedal pulses are present. No significant edema is present. Bilateral hips were examined. The patient has no pain with log roll of the hips. Internal rotation to 30 degrees and external rotation to 30 degrees is painless. Negative FADIR. Right knee was examined today. The right knee is in neutral alignment. The incision is clean dry and intact. Assessment and Plan Problem List (1) Status post total knee replacement, left: Status: Acute Plan: Patient is doing well status post right total knee replacement. Will transition to outpatient physical therapy. Will see him back in 4 weeks with x-rays. He is doing well. - We will see the patient back in approximately 4 weeks for routine follow-up (2) Arthritis of right knee: Status: Acute Advanced Care Planning Discussion Advance care planning discussed with:: patient Office Procedures GNS Level of Care Nursing/Assessment Patient Status: Established Patient Nursing Assessment/Reassesment: Medication Reconciliation, Update PMH in EMR and Vital Signs Coordination of Care: Complex Care and Chronic Disease 1-5, Education Complex Pt/Fam, Consent,records obtained, informed consent, Results/Orders obtained and Staff clarify orders Special Needs: Language special needs Established Patient Charge Established Patient Point Assignment: 95 Established Patient Point Charge: EP Level 3 (80-115) MA Intake Visit Data Collection New Patient or Established: Established Patient (seen at [facility] within 3 years) Reason for Visit:: 2 WEEK R TKA Seen by Clinical Staff ONLY (RN/MA): No 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 PCP or OBGYN visit in last 3 months: Yes Hx Now: No Do You Feel Safe at Home: Yes Authorities Contacted: N/A Questionairres Past Medical History Past Medical History Have you ever been diagnosed with any of the following: Neurological Problems Seizures: No Cardiology Problems Atrial Fibrillation: Yes Peripheral Vascular Disease: Yes Hypercholesterolemia: Yes Congestive Heart Failure: No Hypertension: Yes Respiratory Problems Chronic Obstructive Pulmonary Disease (COPD): No Asthma: No Smoking: No Smoking Exposure: No Stomache/Intestinal Problems Ulcer: Yes Gastroesophageal Reflux Disease: Yes Genital/Urinary Problems Renal Disease: No Musculoskeletal Problems Arthritis: Yes (KNEES) Head,Eye,Nose,Throat Problems Cataracts: Yes (BILATERAL) Endocrine Problems Diabetes Mellitus Type 1: No Diabetes Mellitus Type 2: Yes Blood Problems Sickle Cell Disease: No Other Problems Hospitalization: Yes Shingles: Yes Falls: Yes (SEVERE PAIN TO KNEES WHEN WALKS) Blood Transfusions: No Blood Transfusion Reaction: No Anesthesia Reactions: Yes (cough) MRSA: No Chicken Pox: Yes Measles: Yes Cancer: No Surgical History Pacemaker: Yes Subjective Visit Visit for: follow up visit, post op #1 and knee (RIGHT) Immunization / Flu Flu Vaccine in the Last 12 Months: Yes Flu Vaccine Exclusion Criteria: Already Received History of Present Illness Chief complaint: 2 WEEK R TKA FU Patient is 2 weeks status post right total knee replacement. He is doing well. He has minimal pain. He is working with home therapy Personal History Occupation: RETIRED Red flag PMH: BMI BMI Counceling provided: Yes Additional comments: PATIENT ALREADY HAS WALKER FROM R TKA 4 MTHS AGO Pain Pain level (0-10): 3 Pain duration: ON AND OFF Pain location: anterior Pain quality: aching Ambulatory data Ambulatory device: walker Treatments Improvement with previous injections: No Improvement with PT: No Improvement with NSAIDS: no Review of Systems Review of Systems: All systems negative unless otherwise noted in HPI.
[2025-08-21 09:12] VITALS: BP 137/68; PULSE 80; RESP 19; TEMP 36.3; O2SAT 97; BMI 29.9
== END 2025-08-21 09:40 | disposition home or self-care (01) ==
LOC: HODSRG 08:33
PROVIDERS: Supervising Provider Orthopaedic Surgery Adult Reconstructive Orthopaedic Surgery; Visit Provider Orthopaedic Surgery Adult Reconstructive Orthopaedic Surgery
DX: Z96.651 Presence of right artificial knee joint (principal); M17.11 Unilateral primary osteoarthritis, right knee; I10 Essential (primary) hypertension; K21.9 Gastro-esophageal reflux disease without esophagitis; E78.00 Pure hypercholesterolemia, unspecified; I48.91 Unspecified atrial fibrillation; E11.9 Type 2 diabetes mellitus without complications
CPT/HCPCS: 99213; G0463

== ENCOUNTER 2025-09-22 10:57 | Outpatient (AMB) | payer MEDICARE, MEDICAID, SELFPAY ==
--- NOTE | 2025-09-22 11:11 | ORTHONT_ITS ---
Vital signs 09/22/25 11:13 Height 1.65 m Height Method Measured Weight 80.314 kg Weight Measurement Method Standing Scale BMI 29.5 BP 138/69 H Blood Pressure Source Automatic Cuff Blood Pressure Location Left Upper Arm Position Sitting Respiration 19 Pulse 66 Pulse Source Monitor Temp 97.2 F Temp Source Temporal Artery Scan Pulse Oximetry (%) 98 Oxygen Delivery Method Room Air Med/Allergies Allergies & Medications Allergies No Known Allergies Allergy (Verified 09/22/25 11:16) Medication Reconciliation rivaroxaban 15 mg tablet (Xarelto) 15 mg PO QDAY 09/16/20 [History Confirmed ] dapagliflozin propaned 5 mg-metformin ER 1,000 mg tablet, ext rel 24hr (Xigduo XR) 1 tab PO BID 02/17/25 [History Confirmed 09/22/25] losartan 100 mg tablet 100 mg PO DAILY 02/17/25 [History Confirmed 09/22/25] insulin glargine-yfgn 100 unit/mL (3 mL) subcutaneous pen 25 unit subcut HS 08/05/25 [History Confirmed 09/22/25] acetaminophen 500 mg tablet (Acetaminophen Extra Strength) 1,000 mg (2 x 500 mg) PO Q6H PRN pain #90 tabs 08/07/25 [Rx Confirmed 09/22/25] doxycycline hyclate 100 mg tablet 100 mg PO BID #14 tabs 08/07/25 [Rx Confirmed 09/22/25] oxycodone 5 mg tablet 5 mg PO Q6H PRN pain #28 tabs 08/07/25 [Rx Confirmed 09/22/25] sennosides 8.6 mg-docusate sodium 50 mg tablet (Senna-S) 1 tab-cap PO QDAY #30 tabs 08/07/25 [Rx Confirmed 09/22/25] oxycodone 5 mg tablet 5 mg PO Q6H PRN pain #28 tabs 08/18/25 [Rx Confirmed 09/22/25] gabapentin 300 mg capsule 300 mg PO .qhs #30 caps 08/25/25 [Rx Confirmed 09/22/25] Exam Exam Patient is in no acute distress and is cooperative with the examination today. Breathing is nonlabored. Patient has a normal mood and affect. Bilateral extremities were evaluated and demonstrates sensation intact to light touch. Palpable pedal pulses are present. No significant edema is present. Bilateral hips were examined. The patient has no pain with log roll of the hips. Internal rotation to 30 degrees and external rotation to 30 degrees is painless. Negative FADIR. Right knee was examined today. The right knee is in neutral alignment. The incision is clean dry and intact. Assessment and Plan Problem List (1) Status post total knee replacement, left: Status: Acute Plan: Patient is doing well status post right total knee replacement. Will transition to outpatient physical therapy. - We will see the patient back in approximately 2 to 2 months for routine follow-up (2) Arthritis of right knee: Status: Acute Advanced Care Planning Discussion Advance care planning discussed with:: patient Office Procedures GNS Level of Care Nursing/Assessment Patient Status: Established Patient Nursing Assessment/Reassesment: Medication Reconciliation, Update PMH in EMR and Vital Signs Coordination of Care: Complex Care and Chronic Disease 1-5, Education Complex Pt/Fam, Consent,records obtained, informed consent, Results/Orders obtained and Staff clarify orders Special Needs: Language special needs Established Patient Charge Established Patient Point Assignment: 95 Established Patient Point Charge: EP Level 3 (80-115) MA Intake Visit Data Collection New Patient or Established: Established Patient (seen at [facility] within 3 years) Reason for Visit:: 6 WK POST OP TKA Seen by Clinical Staff ONLY (RN/MA): No 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 PCP or OBGYN visit in last 3 months: Yes Hx Now: No Do You Feel Safe at Home: Yes Authorities Contacted: N/A Questionairres Past Medical History Past Medical History Have you ever been diagnosed with any of the following: Neurological Problems Seizures: No Cardiology Problems Atrial Fibrillation: Yes Peripheral Vascular Disease: Yes Hypercholesterolemia: Yes Congestive Heart Failure: No Hypertension: Yes Respiratory Problems Chronic Obstructive Pulmonary Disease (COPD): No Asthma: No Smoking: No Smoking Exposure: No Stomache/Intestinal Problems Ulcer: Yes Gastroesophageal Reflux Disease: Yes Genital/Urinary Problems Renal Disease: No Musculoskeletal Problems Arthritis: Yes (KNEES) Head,Eye,Nose,Throat Problems Cataracts: Yes (BILATERAL) Endocrine Problems Diabetes Mellitus Type 1: No Diabetes Mellitus Type 2: Yes Blood Problems Sickle Cell Disease: No Other Problems Hospitalization: Yes Shingles: Yes Falls: Yes (SEVERE PAIN TO KNEES WHEN WALKS) Blood Transfusions: No Blood Transfusion Reaction: No Anesthesia Reactions: Yes (cough) MRSA: No Chicken Pox: Yes Measles: Yes Cancer: No Surgical History Pacemaker: Yes Subjective Visit Visit for: follow up visit and knee Immunization / Flu Flu Vaccine in the Last 12 Months: Yes Flu Vaccine Exclusion Criteria: Already Received History of Present Illness Chief complaint: 6 WK POST OP TKA Patient is 6 weeks status post right total knee replacement. He is doing well. He has minimal pain. He is working with home therapy Personal History Occupation: RETIRED Red flag PMH: BMI BMI Counceling provided: Yes Additional comments: PATIENT ALREADY HAS WALKER FROM R TKA 4 MTHS AGO Pain Pain level (0-10): 2 Pain duration: ON AND OFF Pain location: anterior Pain quality: aching Ambulatory data Ambulatory device: cane Treatments Improvement with previous injections: No Improvement with PT: No Improvement with NSAIDS: no Review of Systems Review of Systems: All systems negative unless otherwise noted in HPI.
[2025-09-22 11:13] VITALS: BP 138/69; PULSE 66; RESP 19; TEMP 36.2; O2SAT 98; BMI 29.5
--- NOTE | 2025-09-22 11:31 | XR_ITS ---
EXAMINATION: Bilateral knees 2 views Bilateral knee left lateral knee 2 views Bilateral Axuni single view TECHNIQUE: Bilateral AP knees standing single view, bilateral feet and knees standing single view flexion Standing right lateral knee left lateral knee 2 views Bilateral axial knee single view total 5 views Date and time: September 22, 2028, 1154 hours INDICATIONS: Bilateral knee replacement right side July 2025 left side January 2025 FINDINGS: Bilateral total knee arthroplasties. Satisfactory alignment. No loosening of the prosthetic components. No fractures No patellar dislocations IMPRESSION: Bilateral total knee arthroplasties with satisfactory alignment
== END 2025-09-22 11:33 | disposition home or self-care (01) ==
LOC: HODSRG 10:57
PROVIDERS: Supervising Provider Orthopaedic Surgery Adult Reconstructive Orthopaedic Surgery; Visit Provider Orthopaedic Surgery Adult Reconstructive Orthopaedic Surgery
DX: Z47.1 Aftercare following joint replacement surgery (principal); Z96.651 Presence of right artificial knee joint; I10 Essential (primary) hypertension; E11.9 Type 2 diabetes mellitus without complications; Z79.4 Long term (current) use of insulin
CPT/HCPCS: 73564; 99213; G0463

== ENCOUNTER 2025-10-15 15:30 | Outpatient (RCR) | payer MEDICARE, MEDICAID, SELFPAY ==
--- NOTE | 2025-09-28 14:58 | PTNOTE_ITS ---
PT OP Initial Eval Patient Information Outpatient Physical Therapy Treatment Date: 09/28/25 Visit Reasons: Post op RT TKA Medical Diagnosis: R TKA Treatment Dx #1: R knee pain Treatment Dx #2: Dec R knee ROM Start of Care: 09/28/25 Date of Onset: 08/07/25 DOS Smoking Status Smoking Status: Former smoker Years smoked: 15 Initial Assessment Subjective: Pt is 80 yr old belarusian speaking male s/p R TKA presents ambulating with SPC limited distances. He reports pain with bending the knee and with stairs. PMH: pacemaker, DM, A-fib, PVD, high cholesterol Pt goal: to walk further with less R knee pain Objective: ? R knee AROM: ? Flexion: 95 deg ? Extension: -6 deg ? SLR: ? 45 deg ? Strength: ? Quads and hamstrings 4-/5 ? Antalgic gait pattern with decreased WB tolerance on R LE Assessment: Pt presentation consistent with post op TKA with decreased ROM, strength ? and WB tolerance. Pt lacks a few degrees of knee extension and flexion is limited by ? myofascial limitations and pain.? Pt requires skilled therapy to improve ROM ? and strength and has good rehab potential.? Eval followed by HEP with printout. Short Term and Group Home Goals 1.? Ind with HEP 2.? Improved knee ROM to full extension to 115 deg flexion 3.? Improved quad and hamstring strength to 4+/5 4.? Improved ambulatory tolerance to community distances with symmetrical gait pattern Treatment Plan ? 1. Manual therapy ? 2. Therex ? 3. Modalities as indicated, moist heat, ice, estim Frequency and Duration: 2x a week for 18 visits plus the evaluation Certification Dates: 09/28/25 to 12/27/25 Procedure Charges OP PT Eval Mod Complex 30 minutes: Yes
--- NOTE | 2025-10-01 16:22 | PT.ODAYNRPT ---
PT Outpatient Daily Note OP Daily Note Outpatient Physical Therapy Treatment Date: 10/01/25 Visit Reasons: Post op RT TKA Subjective: Same as time of evaluation, doing HEP Objective: See F/S for therex Assessment: Good flexion AAROM with strap to around 100 deg Plan: Continue per POC Length of Time (minutes) of Treatment: 30 Minutes Procedure Charges Therapeutic Exercise 30 minutes: Yes
--- NOTE | 2025-10-05 15:35 | PT.ODAYNRPT ---
PT Outpatient Daily Note OP Daily Note Outpatient Physical Therapy Treatment Date: 10/05/25 Visit Reasons: Post op RT TKA Subjective: Same as last visit, doing HEP Objective: See F/S for therex Assessment: Good flexion AAROM with strap to around 100 deg Plan: Continue per POC Length of Time (minutes) of Treatment: 30 Minutes Procedure Charges Therapeutic Exercise 30 minutes: Yes
--- NOTE | 2025-10-08 16:19 | PT.ODAYNRPT ---
PT Outpatient Daily Note OP Daily Note Outpatient Physical Therapy Treatment Date: 10/08/25 Visit Reasons: Post op RT TKA Subjective: Same as last visit, doing HEP Objective: See F/S for therex Assessment: Good flexion AAROM with strap to around 106 deg and extension AROM to -3 deg Plan: Continue per POC Length of Time (minutes) of Treatment: 30 Minutes Procedure Charges Therapeutic Exercise 30 minutes: Yes
--- NOTE | 2025-10-15 17:05 | PT.ODAYNRPT ---
PT Outpatient Daily Note OP Daily Note Outpatient Physical Therapy Treatment Date: 10/15/25 Visit Reasons: Post op RT TKA Subjective: Same as last visit, doing HEP Objective: See F/S for therex Assessment: Good flexion AAROM with strap to around 106 deg and extension AROM to -3 deg Plan: Continue per POC Length of Time (minutes) of Treatment: 30 Minutes Procedure Charges Therapeutic Exercise 30 minutes: Yes
== END 2025-10-25 23:59 | disposition home or self-care (01) ==
LOC: CPTX 15:30
PROVIDERS: PCP Orthopaedic Surgery Adult Reconstructive Orthopaedic Surgery; Referring Provider Orthopaedic Surgery Adult Reconstructive Orthopaedic Surgery; Visit Provider Orthopaedic Surgery Adult Reconstructive Orthopaedic Surgery
DX: Z47.1 Aftercare following joint replacement surgery (principal); Z96.651 Presence of right artificial knee joint; M25.561 Pain in right knee; E11.9 Type 2 diabetes mellitus without complications
CPT/HCPCS: 97110; 97162

== ENCOUNTER 2025-10-27 15:24 | Outpatient (RCR) | payer MEDICARE, MEDICAID, SELFPAY ==
--- NOTE | 2025-10-27 17:53 | PT.ODAYNRPT ---
PT Outpatient Daily Note OP Daily Note Outpatient Physical Therapy Treatment Date: 10/27/25 Visit Reasons: post op RT tka Subjective: Same as last visit, doing HEP Objective: See F/S for therex Assessment: Good flexion ROM with lunges to over 100 deg Plan: Continue per POC Length of Time (minutes) of Treatment: 30 Minutes Procedure Charges Therapeutic Exercise 30 minutes: Yes
== END 2025-11-25 23:59 | disposition home or self-care (01) ==
LOC: CPTX 15:24
PROVIDERS: PCP Orthopaedic Surgery Adult Reconstructive Orthopaedic Surgery; Referring Provider Orthopaedic Surgery Adult Reconstructive Orthopaedic Surgery; Visit Provider Orthopaedic Surgery Adult Reconstructive Orthopaedic Surgery
DX: Z47.1 Aftercare following joint replacement surgery (principal); Z96.651 Presence of right artificial knee joint; M25.561 Pain in right knee; E11.9 Type 2 diabetes mellitus without complications
CPT/HCPCS: 97110